=== PATIENT | female | born 1995 | race Two or more races ===

== ENCOUNTER 2017-04-14 21:15 | Inpatient (IN) | payer OTHER, MEDICAID ==
[2017-04-14] MEDS ORDERED: NS 1,000 ML IV ONE (21:20)
[2017-04-14] MEDS ORDERED: fentaNYL 100 MCG/2 ML INJ ONE ×5 (21:22→22:39)
[2017-04-14] MEDS ORDERED: ceFAZolin 2 GM in NS 100 ML IV ONE (21:22)
[2017-04-14] MEDS ORDERED: fentaNYL 100 MCG/2 ML INJ IVP ONE (21:22)
[2017-04-14] MEDS ORDERED: CEFAZOLIN 2 GM/DEXTROSE/100 ML BAG IV ONE (21:23)
[2017-04-14] MEDS ORDERED: IOPAMIDOL (ISOVUE-300) 100 ML BTL ONE (21:27)
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
[2017-04-14] MEDS ORDERED: DIAZEPAM 10 MG/2 ML SYR ONE (22:13)
[2017-04-14 22:37] LABS: ADD DIFF? YES; ADD MORPH? NO; ADD SCAN? NO; ATYPICAL LYMPHOCYTE FLAG 10 (0-99); FRAGMENT RBC FLAG 0 (0-99); HEMATOCRIT 35.1 % (38.0-47.0); HEMOGLOBIN 11.4 g/dL (12.6-16.3); LEFT SHIFT FLG 50 (0-99); LIPEMIA HEMOLYSIS FLAG 80 (0-99); MEAN CELL HEMOGLOBIN 28.7 pg (27.9-34.1); MEAN CELL HEMOGLOBIN CONCENTR. 32.5 g/dL (32.4-36.7); MEAN CELL VOLUME 88.4 fL (81.5-99.8); MEAN PLATELET VOLUME 8.8 fL (8.7-11.7); PLATELET CLUMPS FLAG 0 (0-99); PLATELET COUNT 276 10^3/uL (150-400); RED BLOOD CELL COUNT 3.97 10^6/uL (4.18-5.33); RED CELL DISTRIBUTION WIDTH 12.2 % (11.5-15.2)
[2017-04-14] MEDS ORDERED: PROPOFOL 200 MG/20 ML VIAL ONE ×2 (22:39)
[2017-04-14] MEDS ORDERED: ROCURONIUM 50 MG/5 ML VIAL ONE (22:43)
[2017-04-14] MEDS ORDERED: LIDOCAINE 2% 100 MG/5 ML SYR ONE (22:43)
[2017-04-14 22:46] LABS: INR 1.11 (0.83-1.16); PROTIME(PATIENT) 14.2 SEC (12.0-15.0)
[2017-04-14 22:47] LABS: APTT 26.2 SEC (23.0-38.0)
[2017-04-14 22:49] LABS: ANION GAP 8 mEq/L (8-16); CALCIUM 7.9 mg/dL (8.5-10.4); CARBON DIOXIDE 22 mEq/l (22-31); CHLORIDE 105 mEq/L (97-110); CREATININE 0.8 mg/dL (0.6-1.0); ETHANOL SERUM < 10 mg/dL (0-10); GLOMERULAR FILTRATION RATE > 60; GLUCOSE 134 mg/dL (70-100); POTASSIUM 3.4 mEq/L (3.5-5.2); SODIUM 135 mEq/L (134-144)
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
[2017-04-14 23:05] LABS: PLATELET ESTIMATE ADEQUATE (ADEQ)
[2017-04-14] MEDS ORDERED: MIDAZOLAM 2 MG/2 ML VIAL IVP ONE (23:06)
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
[2017-04-14] MEDS ORDERED: NALOXONE HCL 0.4 MG/ML INJ IVP PRN (23:08)
[2017-04-14] MEDS ORDERED: LORazepam 2 MG/ML INJ IVP PRN (23:08)
[2017-04-14] MEDS ORDERED: ONDANSETRON 4 MG/2 ML VIAL IVP PRN (23:08)
[2017-04-14] MEDS ORDERED: BUPIVACAINE 0.5% 30 ML SDV ONE (23:15)
[2017-04-14] MEDS ORDERED: POLYMYXIN B SULFATE 500,000 UNIT/10 ML SYR IRR ONE (23:15)
[2017-04-14] MEDS ORDERED: BACITRACIN 50,000 UNITS/10 ML SYR IRR ONE (23:15)
[2017-04-14] MEDS ORDERED: LR 1,000 ML IV SCH (23:30)
[2017-04-14] MEDS ORDERED: fentaNYL/NACL 100 ML IV SCH (23:30)
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
[2017-04-15] MEDS ORDERED: ONDANSETRON 4 MG/2 ML VIAL ONE (00:43)
[2017-04-15] MEDS ORDERED: DEXAMETHASONE 4 MG/ML VIAL ONE (00:43)
[2017-04-15] MEDS ORDERED: GENTAMICIN 0.1% 15 GM OINT TP ONE (00:45)
[2017-04-15] MEDS ORDERED: HYDROmorphONE/DILAUDID 2 MG/ML INJ ONE (02:14)
[2017-04-15] MEDS ORDERED: HYDROmorphONE/DILAUDID 1 MG/ML SYR IVP PRN (03:05)
[2017-04-15] MEDS ORDERED: ONDANSETRON 4 MG/2 ML VIAL IVP PRN (03:05)
[2017-04-15] MEDS ORDERED: ACETAMINOPHEN 500 MG TAB PO PRN (03:05)
[2017-04-15] MEDS ORDERED: PROMETHAZINE HCL 25 MG/ML INJ IVP PRN (03:05)
[2017-04-15] MEDS ORDERED: OXYCODONE/APAP 5/325 TAB PO PRN (03:05)
[2017-04-15] MEDS ORDERED: NALOXONE HCL 0.4 MG/ML INJ IVP PRN (03:05)
--- NOTE | 2017-04-15 03:08 | POSTANESTH ---
Post Anesthetic Evaluation Cardiovascular Status: Normal, Stable, Similar to Pre-Op Cond Respiratory Status: Normal, Stable, Similar to Pre-op Cond. Level of Consciousness/Mental Status: Can Participate in Eval, Moderately Sleepy Pain Control: Adequate, Prn Tx Ordered Nausea/Vomiting Control: Adequate, Prn Tx Ordered Complications Possibly Related to Anesthesia: None Noted
[2017-04-15] MEDS ORDERED: DIPHENOXYLATE/ATROPINE LOMOTIL 1 TAB PO PRN (03:11)
[2017-04-15] MEDS ORDERED: LR 1,000 ML IV SCH (03:30)
[2017-04-15] MEDS: fentaNYL 100 MCG/2 ML INJ IVP PRN ×2 (03:54→04:19)
[2017-04-15] MEDS: FAMOTIDINE 20 MG/NACL 50 ML IV SCH ×3 (04:16→19:57)
[2017-04-15 04:52] LABS: % IMMATURE GRANULYOCYTES 0.6 % (0.0-1.1); ADD DIFF? NO; ADD MORPH? NO; ADD SCAN? NO; ATYPICAL LYMPHOCYTE FLAG 20 (0-99); FRAGMENT RBC FLAG 0 (0-99); HEMATOCRIT 26.9 % (38.0-47.0); HEMOGLOBIN 8.8 g/dL (12.6-16.3); LEFT SHIFT FLG 90 (0-99); LIPEMIA HEMOLYSIS FLAG 80 (0-99); MEAN CELL HEMOGLOBIN 28.8 pg (27.9-34.1); MEAN CELL HEMOGLOBIN CONCENTR. 32.7 g/dL (32.4-36.7); MEAN CELL VOLUME 87.9 fL (81.5-99.8); MEAN PLATELET VOLUME 8.7 fL (8.7-11.7); PLATELET CLUMPS FLAG 0 (0-99); PLATELET COUNT 213 10^3/uL (150-400); RED BLOOD CELL COUNT 3.06 10^6/uL (4.18-5.33); RED CELL DISTRIBUTION WIDTH 12.2 % (11.5-15.2)
[2017-04-15 04:56] LABS: COLOR YELLOW; LEUKOCYTE ESTERASE,URINE NEGATIVE (NEGATIVE); NITRITE,URINE NEGATIVE (NEGATIVE)
[2017-04-15 04:58] LABS: MUCUS TRACE /lpf (NONE-1+)
[2017-04-15] MEDS: ceFAZolin 2 GM/DEXTROSE 100 ML IV SCH ×3 (05:43→22:20)
[2017-04-15] MEDS: ACETAMINOPHEN 325 MG TAB PO SCH ×4 (06:25→22:20)
--- NOTE | 2017-04-15 06:31 | GOP ---
[f rep st] OPERATIVE REPORT DATE OF OPERATION: 04/14/2017 SURGEON: Zander Gentile MD SENIOR MECHANICAL DEVELOPMENT ENGINEER: Margaux Damon RN. ANESTHESIA: General. PREOPERATIVE DIAGNOSIS: 1. Left femoral shaft fracture (closed). 2. Left fibular shaft fracture (open). 3. Left medial malleolar ankle fracture (closed and displaced). 4. Left lower leg wound with soft tissue avulsion lateral and posterior compartments. POSTOPERATIVE DIAGNOSIS: 1. Left femoral shaft fracture (closed). 2. Left fibular shaft fracture (open). 3. Left medial malleolar ankle fracture (closed and displaced). 4. Left lower leg wound with soft tissue avulsion lateral and posterior compartments. PROCEDURE PERFORMED: 1. Open reduction, internal fixation with intramedullary louann, left femoral fracture. 2. Open reduction, internal fixation, left medial malleolus ankle fracture. 3. Debridement open fracture, left fibular shaft fracture. 4. Soft tissue debridement, left leg wound. 5. Compartment release, anterior and lateral compartments, left leg. FINDINGS: DESCRIPTION OF PROCEDURE: Patient was taken to the operating room and administered general anesthes ia, placed in the supine position on the fracture table without the fracture apparatus initially set up. We initially addressed the left medial malleolar ankle fracture. An incision was made over th e medial malleolus. This was carried through dermal and subcutaneous tissues. Blunt and sharp diss ection were performed down to the level of the fracture. The periosteum was reflected. The fractur e was reduced and subsequently secured with 2 K-wires. 4.0 cannulated screws measuring 40 mm in replaced by [facility] were used for fixation. Anatomic fixation was obtained. The deltoid ligament was then reapprox imated with 2-0 Vicryl sutures, followed by extensive lavage. The subcutaneous tissues were closed with 2-0 Vicryl suture, followed by closure of the dermis with 3-0 Ethilon. Intraoperative films sh owed excellent alignment. The ankle mortise was still maintained despite the midshaft fibular fract ure. The midshaft fibular fracture was then addressed. We thoroughly lavaged and debrided the frac ture. There were several small bone fragments that had to be removed. The bone ends were curetted and thoroughly lavaged with 9000 cc of saline solution, and the last 3000 cc had polymyxin and bacit racin within it. Soft tissue debridement was then performed on the left leg wound. There was exten sive muscle avulsion and skin avulsion. This had ground in dirt and grass. We took our time pickin g out all the foreign debris. This was thoroughly lavaged with the saline solution. Skin edges wer e trimmed back approximately 0.5 cm. There was no way to get closure, because there was definitely soft tissue loss. We elected to release the fascia in the anterior and lateral compartments. This was performed with a 15 blade and subsequently Metzenbaum scissors. Compartments bulged, but the soft tissue looked vi able; it bled; it contracted. After thorough lavage, debridement and fasciotomies, the muscle layer was covered with gentamicin-impregnated Adaptic gauze. Wet-to-dry dressing was then performed. Th e patient was then placed into a posterior leg splint. We subsequently applied a traction pin throu gh the proximal tibia. This was performed so that we can get distraction on our femoral fracture. Skin had already been prepped in this area. A small puncture wound was made with an 11 blade. A 3/ 16 Steinmann pin was then passed across the proximal tibia. The pin was cut the appropriate length. Our fracture table was then appropriately aligned. The traction bow was fastened to our pins. We subsequently applied distal distraction to the femoral fracture. The leg was then prepped and drap ed proximally to address the femur fracture. An incision was made over the greater trochanter. It was carried through dermal subcutaneous tissue s. The gluteal fascia was incised. The digital palpation of the tip of the greater trochanter was performed. A guidewire was then passed through this tip of the greater trochanter. This was visual ized under fluoroscopic control. We then drilled the proximal cortex with the Synthes starting dril l. The ball-tip guide was bent slightly at its tip. This was then passed down through the proximal fracture segment of the femur under fluoroscopic control. Applying distraction and manipulating th e fracture, we were able to get the ball-tip to pass through the distal fracture segment. Reaming t hen commenced with a size 8.5 reamer and extended up to a size 11.5 reamer initially in 1 mm increme nts. Then, the last 3 regulo in 0.5 mm increments. Excellent chatter was obtained. The guide louann w as then measured. We selected a 10 mm diameter x 380 mm length louann. This was attached to the inser tion apparatus. We subsequently impacted the louann over the guide pin across the fracture. The side arm was placed on the IM nail and tightened with a screwdriver. We positioned this appropriately so that the pin would go up through the femoral neck. The guide apparatus was then attached laterally . The drill sleeves were positioned. We made an incision to allow us to insert the drill sleeves. These were then ratcheted down to the lateral cortex of the femur. A guide pin was then passed up through the lateral cortex of the femur up into the femoral neck. This was then measured. An 80 mm spiral bolt was utilized. This was opened and then passed through the guide apparatus. It was imp acted into position. The visualization of all this took place under fluoroscopy. Thorough lavage w as performed. The guide apparatus was then removed distally. The proximal locking screw was tighte jefferson down. The proximal insertion handle was then removed. Thorough lavage was performed of all inc isions with normal saline. The distal locking screw was then placed using the radiolucent drill. A small incision was made with an 11 blade. The drill was then passed across the distal screw hole i n the nail. The screw was measured and subsequently placed. It measured 54 mm in length. We scann ed the entire fracture, and we found that everything was anatomically reduced. Closure was performe d of the incisions with a 0 Vicryl in the fascia layer, followed by 2-0 Vicryl in the subcutaneous t issues, followed by lorraine in the dermis. A sterile compression dressing applied. The patient paul erated the procedure well and was transferred to the IC unit in stable condition. There were no ope rative complications. COMPLICATIONS: None. /[id number]/MODL
[2017-04-15] MEDS ORDERED: ALBUTEROL 60 PUFFS/8 GM MDI IH PRN (06:51)
[2017-04-15] MEDS ORDERED: ALBUTEROL 200 PUFFS/18 GM MDI IH PRN (07:03)
[2017-04-15] MEDS ORDERED: DEXMEDETOMIDINE HCL 400 MCG in NS 100 ML IV SCH (09:00)
[2017-04-15] MEDS ORDERED: ENOXAPARIN 30 MG/0.3 ML SYR SC SCH (09:00)
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
[2017-04-15] MEDS: LORazepam 2 MG/ML INJ IVP PRN (14:00)
[2017-04-15] MEDS: oxyCODONE IR 5 MG TAB PO PRN ×2 (14:01→18:16)
--- NOTE | 2017-04-15 15:02 | SOAPPROG ---
SOAP Progress Note Assessment/Plan: Assessment/Plan: s/p ORIF with IM louann fixation L femur fracture, ORIF for L medial malleolus fracture, debridement of L open fibula shaft fracture, anterior and lateral compartment releases LLE POD#1 - Continue pain management - NWB LLE - OOB to chair is okay with PT - Consult to wound care for fasciotomy sites - Doppler U/S for LLE pulse 04/15/17 14:58 Subjective: Pt is awake and states she has frequent anxiety attacks. Pt is not able to verbalize her pain. Nurse is at bedside. Pt denies fever, chills, chest pain, abdominal pain, N/V/D, numbness, and tingling. Objective: Vital Signs Temp Pulse Resp BP Pulse Ox 36.9 C 98 10 L 99/52 L 100 04/15/17 11:55 04/15/17 14:00 04/15/17 14:00 04/15/17 14:00 04/15/17 14:00 Laboratory Results 04/15/17 04:40 04/14/17 04/15/17 04/16/17 05:59 05:59 05:59 Intake Total 1865 Output Total 300 Balance 1565 PT 14.2 SEC (12.0-15.0) 04/14/17 22:30 INR 1.11 (0.83-1.16) 04/14/17 22:30 Physical Exam - Physical Exam General Appearance: alert, mild distress Neck: other (collar intact) Skin: other (left foot is cool to touch) Extremities: normal capillary refill, other (post-operative splint and dressings intact, pt able to move her toes well), No pedal edema Neuro/Psych: no motor/sensory deficits, alert, normal mood/affect ICD10 Worksheet Patient Problems: Problems Problem Status Onset Anemia Acute Femur fracture, left Acute Hypokalemia Acute Leukocytosis Acute Lumbar transverse process fracture Acute Sacral fracture Acute Skull fracture Acute Tibia/fibula fracture Acute
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
[2017-04-16] MEDS: ACETAMINOPHEN 325 MG TAB PO SCH ×3 (04:50→17:37)
[2017-04-16] MEDS: ceFAZolin 2 GM/DEXTROSE 100 ML IV SCH ×3 (06:07→23:43)
[2017-04-16] MEDS: FAMOTIDINE 20 MG TAB PO SCH ×2 (08:31→20:15)
[2017-04-16] MEDS: oxyCODONE IR 5 MG TAB PO PRN ×2 (08:31→14:45)
[2017-04-16] MEDS: ENOXAPARIN 40 MG/0.4 ML SYR SC SCH (08:31)
[2017-04-16] MEDS ORDERED: oxyCODONE IR 15 MG TAB PO PRN (09:09)
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
[2017-04-16] MEDS: CYCLOBENZAPRINE 10 MG TAB PO PRN (10:19)
[2017-04-16] MEDS: LORazepam 2 MG/ML INJ IVP PRN (11:03)
[2017-04-16] MEDS: D5W 1/2 NS W/ 20 KCl/L 1,000 ML IV SCH (11:06)
--- NOTE | 2017-04-16 13:02 | SOAPPROG ---
SOAP Progress Note Assessment/Plan: Assessment/Plan: s/p ORIF with IM louann fixation L femur fracture, ORIF for L medial malleolus fracture, debridement of L open fibula shaft fracture, anterior and lateral compartment releases LLE POD#2 - Continue pain management - NWB LLE - OOB to chair is okay with PT - Wound care to address fasciotomy sites today - Monitor swelling and perfusion to the distal LLE 04/15/17 14:58 04/16/17 12:59 Subjective: Pt states her pain is better in the LLE compared to this morning. She has had better circulation in the distal LLE since loosening the post-operative bandages yesterday. Pt was OOB today and able to transfer to the chair. Pt denies fever, chills, chest pain, SOB, numbness and tingling. Objective: Vital Signs Temp Pulse Resp BP Pulse Ox 36.7 C 99 11 L 110/52 L 100 04/16/17 12:00 04/16/17 12:00 04/16/17 12:00 04/16/17 12:00 04/16/17 12:00 Laboratory Results 04/15/17 04:40 04/15/17 04/16/17 04/17/17 05:59 05:59 05:59 Intake Total 1865 3722 Output Total 300 4300 Balance 1565 -578 PT 14.2 SEC (12.0-15.0) 04/14/17 22:30 INR 1.11 (0.83-1.16) 04/14/17 22:30 Physical Exam - Physical Exam General Appearance: alert, mild distress Cardiac/Chest: normal peripheral pulses Skin: normal color, warm/dry, other (Post-operative dressings intact and loosened on the distal LLE. Wound care at bedside.) Extremities: normal capillary refill, swelling, No pedal edema, No calf tenderness, No Dave's sign Neuro/Psych: no motor/sensory deficits, alert, normal mood/affect, oriented x 3 ICD10 Worksheet Patient Problems: Problems Problem Status Onset Anemia Acute Femur fracture, left Acute Hypokalemia Acute Leukocytosis Acute Lumbar transverse process fracture Acute Sacral fracture Acute Skull fracture Acute Tibia/fibula fracture Acute
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
--- NOTE | 2017-04-16 14:00 | WOCRNPDOC ---
WOCRN Advanced Assessment Note - Skin Integrity Problem, Advanced Assess Left lateral lower leg Dressing Type: ABD Pad, Gary Bandage, Adaptic Touch, Other Other Dressing Type: Cast padding Exudate Amount: Minimal Exudate Color: Red Exudate Characteristic(s): Bloody Integumentary Issue Intervention: Dressing Applied (3 pieces of black foam) Emilie Wound Tissue: Swollen Emilie Wound Swelling: Moderate Wound Bed Constitution: Smooth Tissue, Muscle Wound Edges: Not Attached, Irregular Site Odor: None Site Measurement - Head-to-Toe Length X Width X Depth (cm): 11.5cmx9.5cmx1.5cm Skin Integrity Problem Comment: Wound assessed w/ Dr. De La Rosa and Eloisa EDMONDS. Existing GARY wraps cut off, and LLE removed from splint which was placed in OR. Fasciotomy/soft tissue debridement of left lateral leg w/ exposed muscle and smooth tissue, moderate swelling emilie-wound and throughout LLE. Wound bed is beefy and red, comprised of well-vascularized tissue. Emilie-wound skin has a few minor, superficial abrasions, but is otherwise intact. Site flushed w/ NS, emilie-wound prepped and draped, and 3 pieces of black foam placed into wound bed and bridged up to just below L knee. NPWT initiated at 125mmHg, low continuous suction, no leaks. Extremity was the re-wrapped w/ cast padding, placed back into splint, and secured w/ GARY wraps x2 to L knee. In order to prevent pressure /friction injuries from splint, foam dressing was placed over great toe and L heel. Staff RNs Keyanna and Maria C present and assisting. Eloisa EDMONDS will follow up with patient on Thursday 04/19. Left Medial Ankle Surgical Wound/Incision Dressing Type: Adaptic Touch, Other Other Dressing Type: Cast padding Dressing Description: Intact Closure Description: Sutures, Approximated Exudate Amount: Scant Exudate Characteristic(s): Serosanguinous Integumentary Issue Intervention: Dressing Applied Emilie Wound Swelling: Mild Skin Integrity Problem Comment: Intact sutures noted to L medial ankle, well- approximated w/ scant drainage. Mild swelling noted throughout L foot and lower leg, no erythema along incision. Site covered w/ Xeroform gauze and cast padding , followed by splint and GAYR wraps. Wound care will follow up with patient on Thursday 04/19. Left Upper Leg Surgical Wound/Incision Dressing Type: Gauze Dressing Description: Shadowed Closure Description: [place], Approximated Exudate Amount: Scant Exudate Color: Reddish/Yellow Exudate Characteristic(s): Serosanguinous Integumentary Issue Intervention: Dressing Changed Emilie Wound Tissue: Denuded Emilie Wound Swelling: Mild Site Odor: None Skin Integrity Problem Comment: Three, discrete stapled incisions noted on L lateral thigh, well-approximated w/ scant serosanguinous exudate. Very mild swelling along incisions, no erythema. There are scattered abrasions on her lateral thigh, dried, w/ no associated swelling. Covered abrasions in Vaseline gauze, then covered incisions and abrasions w/ ABDs, secured w/ Medipore tape. belt builderCECILIA Briceño present and assisting.
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
[2017-04-17] MEDS: oxyCODONE IR 5 MG TAB PO PRN ×6 (00:23→20:32)
[2017-04-17] MEDS: ACETAMINOPHEN 325 MG TAB PO SCH ×4 (00:24→19:04)
[2017-04-17] MEDS: ceFAZolin 2 GM/DEXTROSE 100 ML IV SCH ×3 (05:16→21:51)
[2017-04-17] MEDS ORDERED: BISACODYL 10 MG SUPP PR PRN (07:28)
[2017-04-17] MEDS ORDERED: LACTULOSE 20 GM/30 ML UDCUP PO PRN (07:28)
[2017-04-17] MEDS ORDERED: POLYETHYLENE GLYCOL 3350 17 GM PKT PO PRN (07:28)
[2017-04-17] MEDS: D5W 1/2 NS W/ 20 KCl/L 1,000 ML IV SCH (07:38)
[2017-04-17] MEDS: ENOXAPARIN 40 MG/0.4 ML SYR SC SCH (09:13)
[2017-04-17] MEDS: FAMOTIDINE 20 MG TAB PO SCH ×2 (09:14→20:31)
[2017-04-17] MEDS: SENNOSIDES/DOCUSATE SODIUM TAB PO SCH ×2 (09:14→20:31)
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
[2017-04-17 12:00] LABS: % IMMATURE GRANULYOCYTES 0.4 % (0.0-1.1); ABSOLUTE IMMATURE GRANULOCYTES 0.04 10^3/uL (0.00-0.10); ADD DIFF? NO; ADD MORPH? YES; ADD SCAN? NO; ATYPICAL LYMPHOCYTE FLAG 20 (0-99); FRAGMENT RBC FLAG 0 (0-99); HEMATOCRIT 17.8 % (38.0-47.0); LEFT SHIFT FLG 10 (0-99); LIPEMIA HEMOLYSIS FLAG 80 (0-99); MEAN CELL HEMOGLOBIN 28.4 pg (27.9-34.1); MEAN CELL VOLUME 88.6 fL (81.5-99.8); MEAN PLATELET VOLUME 9.4 fL (8.7-11.7); PLATELET CLUMPS FLAG 20 (0-99); PLATELET COUNT 146 10^3/uL (150-400); RED BLOOD CELL COUNT 2.01 10^6/uL (4.18-5.33); RED CELL DISTRIBUTION WIDTH 12.2 % (11.5-15.2)
[2017-04-17 12:06] LABS: HEMOGLOBIN 5.7 g/dL (12.6-16.3)
[2017-04-17 12:26] LABS: HYPOCHROMIA 1+
[2017-04-17 12:39] LABS: ANION GAP 8 mEq/L (8-16); CALCIUM 8.3 mg/dL (8.5-10.4); CARBON DIOXIDE 26 mEq/l (22-31); CHLORIDE 102 mEq/L (97-110); CREATININE 0.7 mg/dL (0.6-1.0); GLOMERULAR FILTRATION RATE > 60; GLUCOSE 146 mg/dL (70-100); SODIUM 136 mEq/L (134-144)
[2017-04-17 12:50] LABS: HEMATOCRIT 16.6 % (38.0-47.0); HEMOGLOBIN 5.5 g/dL (12.6-16.3)
[2017-04-17] MEDS ORDERED: FUROSEMIDE 20 MG/2 ML VIAL IVP ONE (13:25)
[2017-04-17] MEDS ORDERED: FUROSEMIDE 20 MG/2 ML VIAL ONE (18:58)
[2017-04-17 22:45] LABS: PLATELET ESTIMATE ADEQUATE (ADEQ)
[2017-04-18] MEDS: oxyCODONE IR 5 MG TAB PO PRN ×6 (00:43→20:49)
[2017-04-18] MEDS: ACETAMINOPHEN 325 MG TAB PO SCH ×5 (00:43→23:00)
[2017-04-18] MEDS: LORazepam 2 MG/ML INJ IVP PRN (04:27)
[2017-04-18 05:17] LABS: ABSOLUTE IMMATURE GRANULOCYTES 0.09 10^3/uL (0.00-0.10); ABSOLUTE NRBC COUNT 0.04 10^3/uL (0-0.01); ADD DIFF? NO; ADD MORPH? NO; ADD SCAN? NO; ATYPICAL LYMPHOCYTE FLAG 0 (0-99); FRAGMENT RBC FLAG 0 (0-99); HEMATOCRIT 25.3 % (38.0-47.0); HEMOGLOBIN 8.7 g/dL (12.6-16.3); LEFT SHIFT FLG 10 (0-99); LIPEMIA HEMOLYSIS FLAG 90 (0-99); MEAN CELL HEMOGLOBIN 29.6 pg (27.9-34.1); MEAN CELL HEMOGLOBIN CONCENTR. 34.4 g/dL (32.4-36.7); MEAN CELL VOLUME 86.1 fL (81.5-99.8); MEAN PLATELET VOLUME 9.5 fL (8.7-11.7); NRBC-AUTO% 0.4 % (0.0-0.2); PLATELET CLUMPS FLAG 0 (0-99); PLATELET COUNT 153 10^3/uL (150-400); RED BLOOD CELL COUNT 2.94 10^6/uL (4.18-5.33); RED CELL DISTRIBUTION WIDTH 12.3 % (11.5-15.2)
[2017-04-18] MEDS: ceFAZolin 2 GM/DEXTROSE 100 ML IV SCH ×3 (05:35→20:50)
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
[2017-04-18] MEDS: MAGNESIUM HYDROXIDE 30 ML UDCUP PO PRN (09:30)
[2017-04-18] MEDS: FAMOTIDINE 20 MG TAB PO SCH ×2 (09:33→20:49)
[2017-04-18] MEDS: ENOXAPARIN 40 MG/0.4 ML SYR SC SCH (09:33)
[2017-04-18] MEDS: SENNOSIDES/DOCUSATE SODIUM TAB PO SCH ×2 (09:33→20:48)
[2017-04-18] MEDS ORDERED: BACITRACIN ZINC 14.2 GM OINTTUBE TP ONE (09:44)
--- NOTE | 2017-04-18 12:41 | SOAPPROG ---
SOAP Progress Note Assessment/Plan: Assessment: POD 4 s/p L fem IMN, ORIF L ankle with open fx khadar/vac/ fasciotomies (ant & lat) by Dr Gentile. LT sens deficit much improved today. Plan: Continue per Dr Gentile's plan, including soft tissue defect/wound care, vac LLE with standard Q48-72H changes by customs opener verifier packer, NWB LLE, ultimate coverage plan pending. Dsgs changed today by me and RN. OK for OOB to chair, cont to adv mobilization with precautions. Primary care by Trauma service ( primary team), including VTE chemo/mech prophylaxis. Please call with any questions. 04/18/17 12:39 Subjective: Tx'd to floor o/n, doing well, stable. No ANURAG. Pain better controlled. Objective: Vital Signs Temp Pulse Resp BP Pulse Ox 36.8 C 96 14 135/83 H 99 04/18/17 11:55 04/18/17 11:55 04/18/17 11:55 04/18/17 11:55 04/18/17 11:55 Laboratory Results 04/18/17 04:35 04/17/17 11:40 04/17/17 04/18/17 04/19/17 05:59 05:59 05:59 Intake Total 1545 2260 200 Output Total 2625 1500 2100 Balance -1080 760 -1900 PT 14.2 SEC (12.0-15.0) 04/14/17 22:30 INR 1.11 (0.83-1.16) 04/14/17 22:30 LLE thigh wounds clean/dry, benign, +edema but thigh soft. Vac in place and functioning. LT sens much improved today x SP/DP/T nerve dist's at L foot, motor continues to be intact (toe wiggle). No sig pain with pass stretch and AROM. WWP w/ brisk CR. ICD10 Worksheet Patient Problems: Problems Problem Status Onset Anemia Acute Femur fracture, left Acute Hypokalemia Acute Leukocytosis Acute Lumbar transverse process fracture Acute Sacral fracture Acute Skull fracture Acute Tibia/fibula fracture Acute
[2017-04-18] MEDS: LORazepam 1 MG TAB PO PRN (23:00)
[2017-04-19] MEDS: oxyCODONE IR 5 MG TAB PO PRN ×5 (03:23→23:02)
[2017-04-19] MEDS: ceFAZolin 2 GM/DEXTROSE 100 ML IV SCH ×2 (04:53→15:25)
[2017-04-19] MEDS: ACETAMINOPHEN 325 MG TAB PO SCH ×3 (04:53→17:57)
[2017-04-19] MEDS: SENNOSIDES/DOCUSATE SODIUM TAB PO SCH ×2 (08:20→21:20)
[2017-04-19] MEDS: FAMOTIDINE 20 MG TAB PO SCH ×2 (08:21→21:20)
--- NOTE | 2017-04-19 08:31 | SOAPPROG ---
SOAP Progress Note Assessment/Plan: Assessment/Plan: s/p ORIF with IM louann fixation L femur fracture, ORIF for L medial malleolus fracture, debridement of L open fibula shaft fracture, anterior and lateral compartment releases LLE POD#2 - Continue pain management, encourage PO meds and weaning off IV as tolerated - NWB LLE, cont to encourage swelling control - OOB to chair is okay with PT, cont to advance mobilization as ordered - Dr. Torres will assist in wound care, consult greatly appreciated - Monitor swelling and perfusion to the distal LLE, sensation improved today - Cont VTE mechanical and chemoprophylaxis -OK to d/c from ortho standpoint pending soft tissue coverage plan per Dr. Torres 04/19/17 08:24 Subjective: Pt seen at bedside. States she is tolerating her diet and medications well. States pain is well controlled on current medication, though confirms that this medication is making her sleep. Objective: Vital Signs Temp Pulse Resp BP Pulse Ox 36.9 C 96 14 123/74 H 95 04/19/17 07:55 04/19/17 07:55 04/19/17 07:55 04/19/17 07:55 04/19/17 07:55 Laboratory Results 04/18/17 04:35 04/17/17 11:40 04/18/17 04/19/17 04/20/17 05:59 05:59 05:59 Intake Total 2260 1650 Output Total 1500 2900 Balance 760 -1250 PT 14.2 SEC (12.0-15.0) 04/14/17 22:30 INR 1.11 (0.83-1.16) 04/14/17 22:30 Pt seen at bedside. Pleasaqnt and cooperative with exam, VSS. Exam of LLE thigh reveals intact dressings, clean/dry. Mild edema noted in the thigh, though compartments appear soft. Vac in place and functioning. Sensation improved today per Dr. Gentile's exam, motor function intact with flex/ext of toes. No significant pain noted with passive stretch and no increase w/ AROM. Brisk cap refill noted. ICD10 Worksheet Patient Problems: Problems Problem Status Onset Anemia Acute Femur fracture, left Acute Hypokalemia Acute Leukocytosis Acute Lumbar transverse process fracture Acute Sacral fracture Acute Skull fracture Acute Tibia/fibula fracture Acute
[2017-04-19 08:41] LABS: HEMATOCRIT 25.7 % (38.0-47.0); HEMOGLOBIN 8.8 g/dL (12.6-16.3); MEAN CELL HEMOGLOBIN 29.7 pg (27.9-34.1); MEAN CELL HEMOGLOBIN CONCENTR. 34.2 g/dL (32.4-36.7); MEAN CELL VOLUME 86.8 fL (81.5-99.8); RED BLOOD CELL COUNT 2.96 10^6/uL (4.18-5.33); RED CELL DISTRIBUTION WIDTH 12.9 % (11.5-15.2)
[2017-04-19] MEDS: ENOXAPARIN 40 MG/0.4 ML SYR SC SCH (09:29)
[2017-04-19] MEDS: LORazepam 1 MG TAB PO PRN (09:29)
[2017-04-19] MEDS: CYCLOBENZAPRINE 10 MG TAB PO PRN (10:26)
--- NOTE | 2017-04-19 16:02 | WOCRNPDOC ---
WOCRN Advanced Assessment Note - Skin Integrity Problem, Advanced Assess Left Medial Ankle Surgical Wound/Incision Dressing Type: Xeroform Dressing Description: Intact, Shadowed Closure Description: Sutures, Approximated Exudate Amount: Scant Exudate Characteristic(s): Serosanguinous Integumentary Issue Intervention: Dressing Changed Emilie Wound Swelling: Moderate Site Odor: None Skin Integrity Problem Comment: No sign of infection. Left Upper Lateral Distal Leg Abrasion Dressing Type: ABD Pad, Xeroform Exudate Amount: Minimal Integumentary Issue Intervention: Dressing Changed, Dressing Initialed & Dated Emilie Wound Swelling: Moderate Wound Bed Color: [place], Yellow Wound Bed Constitution: Granulation Tissue (80%), Smooth Tissue (20%) Wound Edges: Epithelizing Site Measurement - Head-to-Toe Length X Width X Depth (cm): 4x6x0.2 Skin Integrity Problem Comment: Small area of full thickness injury (1x1) with surrounding partial thickness. Healing well. Cleaned with ns and gauze. Wound gel to wound bed. Covered with Allevyn life dressing. Left Upper Leg Surgical Wound/Incision Dressing Type: ABD Pad, Xeroform Closure Description: [place] (x7 in proximal incision site. ), Approximated Exudate Amount: None Integumentary Issue Intervention: Dressing Changed, Dressing Initialed & Dated Emilie Wound Swelling: Severe Site Measurement - Head-to-Toe Length X Width X Depth (cm): 5.7x5.2x0.2 ( measurement of the abrasion that is lateral to the incision site). Incision is approx 3 cm long. Extremity Temperature: Warm Skin Integrity Problem Comment: Two incision sites are present. One distal and more anterior on thigh the other on proximal and lateral. The proximal incision also has a partial thickness abrasion adjacent to it. All were cleaned area with ns and gauze. Silvia on incisions were covered with dry mepilex border ag+ 's. For the proximal wound with the adjacent abration, one border was cut off and placed over silvia. Then wound gel was applied to the partial thickness abrasion that is lateral to the incision line.This was covered with Allevyn life dressing. No sign of infection nor dehiscence in any wounds. drill foremanDIANNE Begum and patient's mother were in room for care. Patient's grandmother also came and went during the entire proceedure. Left lateral lower leg Dressing Type: Black Vac Foam (x3), Wound Vac Dressing Description: Clean/Dry, Intact Exudate Amount: Scant Exudate Characteristic(s): Serosanguinous Integumentary Issue Intervention: Dressing Changed Emilie Wound Swelling: Severe (especially distal to wound.) Wound Bed Constitution: Granulation Tissue (30%), Smooth Tissue (75%), Tendon ( 10%), Muscle Wound Edges: Attached Site Measurement - Head-to-Toe Length X Width X Depth (cm): 9.6x8.5x2 Skin Integrity Problem Comment: Dr. De La Rosa visualized wound. Area was cleaned with ns and gauze. Skin prep and drape applied emilie wound. Wound bed from 9 to 3 oclock covered with mepitel contact layer. Then a medium black simplace was used to apply to wound bed (x3 pieces). This was bridged to anterior proximal lower leg. Vac restarted at - 125 mm Hg continous suction with no leaks. Ankle, lower leg and thigh were all stablized during vac change. Lateral, medial foot and heel were protected with non border Mepilex. All of foot (except toes) and lower leg was re-wrapped in cast padding x2. Splint was reapplied. ABD's x2 were applied to anterior of lower leg and then it was wrapped from toes to 1 inch below knee with Gary for stabilization and protection. Vac tubing was padded from skin with extra cast padding. Left Lateral Distal Foot Pressure Injury Dressing Type: Gary Bandage Other Dressing Type: Cast padding Integumentary Issue Intervention: Dressing Applied Site Measurement - Head-to-Toe Length X Width X Depth (cm): 1.7x1.1x0 Pressure Injury Stage: Stage 1 Pressure Injury Present on Admit: No Skin Integrity Problem Comment: Area was not loaded in splint, however there is a small area of non blanching 0.5x0.5x0 in the middle of a larger area of blanching erythema. (measurements noted above). Unclear etiology. May have been from GARY wrap or side of the bed. Asked CECILIA Dow to place offloading boots on heels at all times and to alert ELEMENTARY ESL TEACHER.
[2017-04-19] MEDS: MAGNESIUM HYDROXIDE 30 ML UDCUP PO PRN (16:26)
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
[2017-04-20] MEDS: ACETAMINOPHEN 325 MG TAB PO SCH ×4 (00:39→18:26)
--- NOTE | 2017-04-20 08:11 | SOAPPROG ---
SOAP Progress Note Assessment/Plan: Assessment/Plan: s/p ORIF with IM louann fixation L femur fracture, ORIF for L medial malleolus fracture, debridement of L open fibula shaft fracture, anterior and lateral compartment releases LLE POD#5 - Continue pain management, encourage PO meds and weaning off IV as tolerated - Encourage adequate hydration and nutrition strategies to promote healing - Cont NWB LLE, cont to encourage swelling control - OOB to chair is okay with PT, cont to advance mobilization as ordered - Trauma will assist in wound care, consult greatly appreciated, anticipating possible grafting procedure in next few days per report - Monitor swelling and perfusion to the distal LLE, sensation remains improved - Cont VTE mechanical and chemoprophylaxis - Pt remains stable and OK to d/c from ortho standpoint pending soft tissue coverage plan per trauma service 04/20/17 08:11 Subjective: Pt seen at bedside today. Slow to answer questions, but alert. She notes no significant pain at this time, and states she is tolerating her diet and medications well, though does note a desire to no longer take "stronger" pain medications. We have discussed the need for adequate pain control for work with PT, and also that we do not want to over medicate her. We have discussed the signs of compartment syndrome. Pt denies any pain out of proportion, new onset n/t, temperature change or feelings of increased swelling today. She reports she has spoken with Dr. Roca about a potential plan for wound care, and possible future surgical interventions including a skin graft. She has no additional concerns or complaints at this time. Objective: Vital Signs Temp Pulse Resp BP Pulse Ox 36.8 C 87 16 106/62 99 04/20/17 07:43 04/20/17 07:43 04/20/17 07:43 04/20/17 07:43 04/20/17 07:43 Laboratory Results 04/19/17 08:24 04/17/17 11:40 04/19/17 04/20/17 04/21/17 05:59 05:59 05:59 Intake Total 1650 900 Output Total 2900 700 Balance -1250 200 PT 14.2 SEC (12.0-15.0) 04/14/17 22:30 INR 1.11 (0.83-1.16) 04/14/17 22:30 Pt seen at bedside, awoken for exam. Pleasant and cooperative with exam, VSS. Exam of LLE thigh reveals intact lateral distal dressings, clean/dry, with no significant surrounding erythema, calor, discharge or induration. Mild ecchymosis noted in the distal thigh and popliteal area, thigh compartments appear soft. Lower extremity splint in place, dressings changed yesterday by trauma service. Sensation remains improved distally, motor function intact with flex/ext of toes. No significant pain noted with passive stretch and no increase w/ AROM. Brisk cap refill noted. ICD10 Worksheet Patient Problems: Problems Problem Status Onset Anemia Acute Femur fracture, left Acute Hypokalemia Acute Leukocytosis Acute Lumbar transverse process fracture Acute Sacral fracture Acute Skull fracture Acute Tibia/fibula fracture Acute
[2017-04-20] MEDS: oxyCODONE IR 5 MG TAB PO PRN ×4 (08:35→20:21)
[2017-04-20] MEDS: SENNOSIDES/DOCUSATE SODIUM TAB PO SCH ×2 (08:36→20:22)
[2017-04-20] MEDS: ENOXAPARIN 40 MG/0.4 ML SYR SC SCH (08:36)
[2017-04-20] MEDS: FAMOTIDINE 20 MG TAB PO SCH ×2 (08:36→20:22)
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
[2017-04-20] MEDS: CYCLOBENZAPRINE 10 MG TAB PO PRN (11:08)
[2017-04-20] MEDS: LORazepam 1 MG TAB PO PRN (21:04)
[2017-04-21] MEDS: ACETAMINOPHEN 325 MG TAB PO SCH ×5 (00:03→23:51)
[2017-04-21] MEDS: oxyCODONE IR 5 MG TAB PO PRN ×4 (00:03→23:52)
[2017-04-21] MEDS: D5W 1/2 NS W/ 20 KCl/L 1,000 ML IV SCH (00:08)
[2017-04-21] MEDS: FAMOTIDINE 20 MG TAB PO SCH ×2 (07:08→20:55)
[2017-04-21] MEDS: SENNOSIDES/DOCUSATE SODIUM TAB PO SCH ×2 (07:08→20:54)
--- NOTE | 2017-04-21 08:19 | SOAPPROG ---
SOAP Progress Note Assessment/Plan: Assessment: Plan: 04/21/17 08:15 S?P Fasciotomies, debridement of open fx fibula, orif femur, orif madial malleolus, non op rx sacral ala and inferior pevic rami fx. Plan for STSG to leg wound today. Will continue to follow, encourage mobility with walker Possible rehab stay vs homecare/PT Subjective: Moderate leg pain, headache Objective: Vital Signs Temp Pulse Resp BP Pulse Ox 36.7 C 104 H 15 105/57 L 96 04/21/17 07:59 04/21/17 07:59 04/21/17 07:59 04/21/17 07:59 04/21/17 07:59 Laboratory Results 04/19/17 08:24 04/17/17 11:40 04/20/17 04/21/17 04/22/17 05:59 05:59 05:59 Intake Total 900 600 Output Total 700 200 Balance 200 400 PT 14.2 SEC (12.0-15.0) 04/14/17 22:30 INR 1.11 (0.83-1.16) 04/14/17 22:30 CSMT: leg dressings ok Thigh swelling improving Difficult sensory exam but as far as I can tell she still has mild hypesthesia in toes both dorsally and plantarly. she does have intact ROM ICD10 Worksheet Patient Problems: Problems Problem Status Onset Anemia Acute Femur fracture, left Acute Hypokalemia Acute Leukocytosis Acute Lumbar transverse process fracture Acute Sacral fracture Acute Skull fracture Acute Tibia/fibula fracture Acute
[2017-04-21] MEDS ORDERED: ceFAZolin 2 GM/DEXTROSE 100 ML IV ONE (09:00)
[2017-04-21] MEDS ORDERED: THROMBIN (BOVINE) 20,000 UNIT SPRAY TP ONE (09:27)
[2017-04-21] MEDS ORDERED: BUPIVACAINE 0.5% 30 ML SDV ONE (09:27)
[2017-04-21] MEDS ORDERED: MINERAL OIL 10 ML VIAL ONE (09:28)
[2017-04-21] MEDS ORDERED: fentaNYL 100 MCG/2 ML INJ ONE ×3 (09:33→11:52)
[2017-04-21] MEDS ORDERED: PROPOFOL 200 MG/20 ML VIAL ONE ×3 (09:33→10:52)
[2017-04-21] MEDS ORDERED: LR 1,000 ML IV ONE (09:51)
[2017-04-21] MEDS ORDERED: MIDAZOLAM 2 MG/2 ML VIAL IVP ONE (09:54)
[2017-04-21] MEDS ORDERED: MIDAZOLAM 2 MG/2 ML VIAL ONE (09:55)
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
[2017-04-21] MEDS ORDERED: HYDROmorphONE/DILAUDID 2 MG/ML INJ ONE (10:32)
[2017-04-21] MEDS ORDERED: OXYCODONE/APAP 5/325 TAB PO PRN (11:37)
[2017-04-21] MEDS ORDERED: LR 500 ML IV PRN (11:37)
[2017-04-21] MEDS ORDERED: ALBUTEROL 3 ML DEYVIAL IH PRN (11:37)
[2017-04-21] MEDS ORDERED: ONDANSETRON 4 MG/2 ML VIAL IVP PRN (11:37)
[2017-04-21] MEDS ORDERED: NALOXONE HCL 0.4 MG/ML INJ IVP PRN (11:37)
[2017-04-21] MEDS ORDERED: ACETAMINOPHEN 500 MG TAB PO PRN (11:37)
--- NOTE | 2017-04-21 11:37 | POSTANESTH ---
Post Anesthetic Evaluation Cardiovascular Status: Normal, Stable Respiratory Status: Normal, Stable Level of Consciousness/Mental Status: Can Participate in Eval Pain Control: Adequate, Prn Tx Ordered Nausea/Vomiting Control: Adequate, Prn Tx Ordered Complications Possibly Related to Anesthesia: None Noted
[2017-04-21] MEDS: fentaNYL 100 MCG/2 ML INJ IVP PRN ×2 (11:53→12:04)
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
[2017-04-21] MEDS ORDERED: HYDROmorphONE/DILAUDID 1 MG/ML SYR ONE (12:11)
[2017-04-21] MEDS: HYDROmorphONE/DILAUDID 1 MG/ML SYR IVP PRN ×2 (12:14→12:24)
[2017-04-21] MEDS: LORazepam 1 MG TAB PO PRN (13:01)
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
[2017-04-21] MEDS: CYCLOBENZAPRINE 10 MG TAB PO PRN (20:55)
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
[2017-04-22 05:00] VITALS: RESP 16
[2017-04-22] MEDS: ACETAMINOPHEN 325 MG TAB PO SCH ×4 (05:25→22:37)
[2017-04-22] MEDS: oxyCODONE IR 5 MG TAB PO PRN ×5 (05:26→21:22)
--- NOTE | 2017-04-22 07:14 | SOAPPROG ---
SOAP Progress Note Assessment/Plan: Assessment/Plan: s/p ORIF with IM louann fixation L femur fracture, ORIF for L medial malleolus fracture, debridement of L open fibula shaft fracture, anterior and lateral compartment releases LLE POD#7 - Continue pain management, encourage PO meds and weaning off IV as tolerated - Cont NWB LLE, cont to encourage swelling control, sensation remains improved - Cont to advance mobilization as ordered - Cont to have trauma will assist in wound care, consult greatly appreciated, taken to OR last 02/19 - Cont to monitor swelling and perfusion to the distal LLE, sensation remains improved - Cont VTE mechanical and chemoprophylaxis - Pt remains stable and OK to d/c from ortho standpoint pending soft tissue coverage plan per trauma service 04/22/17 07:14 04/22/17 10:23 Subjective: Pt seen at bedside, awoken for exam. No complaints of significant pain. Pt states she is tolerating her diet and medications well. She reports the numbness in her buttock is improving. She has no additional concerns or complaints at this time. Objective: Vital Signs Temp Pulse Resp BP Pulse Ox 36.8 C 92 16 94/54 L 96 04/22/17 04:00 04/22/17 04:00 04/22/17 04:00 04/22/17 04:00 04/22/17 04:00 Laboratory Results 04/19/17 08:24 04/17/17 11:40 04/21/17 04/22/17 04/23/17 05:59 05:59 05:59 Intake Total 600 1060 Output Total 200 650 Balance 400 410 PT 14.2 SEC (12.0-15.0) 04/14/17 22:30 INR 1.11 (0.83-1.16) 04/14/17 22:30 Pt seen at bedside, awoken for exam. A&O, VSS. Exam of LLE reveals intact dressings on lateral thigh w/no surrounding significant erythema, calor, discharge or induration. Exam of lower extremity reveals wound vac in place. Pt is intact to light touch sensation on the dorsal and plantar surfaces of her toes, good ROM, brisk cap refill. DNVI BLE. ICD10 Worksheet Patient Problems: Problems Problem Status Onset Anemia Acute Femur fracture, left Acute Hypokalemia Acute Leukocytosis Acute Lumbar transverse process fracture Acute Sacral fracture Acute Skull fracture Acute Tibia/fibula fracture Acute
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
[2017-04-22] MEDS: CYCLOBENZAPRINE 10 MG TAB PO PRN ×2 (08:32→16:30)
[2017-04-22] MEDS: SENNOSIDES/DOCUSATE SODIUM TAB PO SCH ×2 (08:32→21:23)
[2017-04-22] MEDS: FAMOTIDINE 20 MG TAB PO SCH ×2 (08:33→21:23)
[2017-04-22] MEDS: LORazepam 1 MG TAB PO PRN (21:23)
[2017-04-23] MEDS: oxyCODONE IR 5 MG TAB PO PRN ×5 (01:35→15:21)
[2017-04-23] MEDS: CYCLOBENZAPRINE 10 MG TAB PO PRN (01:36)
[2017-04-23] MEDS: ACETAMINOPHEN 325 MG TAB PO SCH ×2 (05:33→11:18)
[2017-04-23 07:49] VITALS: BP 107/58; PULSE 70; TEMP 97.6; O2SAT 97
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
--- NOTE | 2017-04-23 09:30 | SOAPPROG ---
SOAP Progress Note Assessment/Plan: Assessment/Plan: s/p ORIF with IM louann fixation L femur fracture, ORIF for L medial malleolus fracture, debridement of L open fibula shaft fracture, anterior and lateral compartment releases LLE POD#8 - Continue pain management, encourage PO meds - NWB LLE - Appreciate wound care in management of fasciotomy sites - Monitor swelling and perfusion to the distal LLE, remains improved - Keep feet elevated while in bed to improve edema, ice for comfort - Pt remains stable and okay for discharge from an orthopedic standpoint pending appropriate follow-up with wound care 04/15/17 14:58 04/16/17 12:59 04/23/17 09:26 Subjective: Pt states her left foot seems more swollen. Slight, intermittent tingling in the buttock, but seems improved. Pt denies fever, chills, chest pain, SOB, abdominal pain, N/V/D, and calf pain. Objective: Vital Signs Temp Pulse Resp BP Pulse Ox 36.4 C 70 16 107/58 L 97 04/23/17 07:48 04/23/17 07:48 04/23/17 07:48 04/23/17 07:48 04/23/17 07:48 Laboratory Results 04/19/17 08:24 04/17/17 11:40 04/22/17 04/23/17 04/24/17 05:59 05:59 05:59 Intake Total 1060 500 Output Total 650 400 Balance 410 100 PT 14.2 SEC (12.0-15.0) 04/14/17 22:30 INR 1.11 (0.83-1.16) 04/14/17 22:30 Physical Exam - Physical Exam General Appearance: alert, no apparent distress Cardiac/Chest: normal peripheral pulses Skin: normal color, warm/dry, other (wound vac in place LLE) Extremities: normal inspection, normal capillary refill, pedal edema, No calf tenderness, No swelling, No Dave's sign Neuro/Psych: no motor/sensory deficits, alert, normal mood/affect, oriented x 3 ICD10 Worksheet Patient Problems: Problems Problem Status Onset Anemia Acute Femur fracture, left Acute Hypokalemia Acute Leukocytosis Acute Lumbar transverse process fracture Acute Sacral fracture Acute Skull fracture Acute Tibia/fibula fracture Acute
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
[2017-04-23] MEDS: SENNOSIDES/DOCUSATE SODIUM TAB PO SCH (11:13)
[2017-04-23] MEDS: FAMOTIDINE 20 MG TAB PO SCH (11:14)
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
== END 2017-04-23 16:15 | DRG 956 ==
LOC: EDUNIT# → F2N 04-15 02:48 → F3N 04-17 11:57
PROVIDERS: ADMIT Surgery; ATTEND Surgery
PROC: 2W3PX1Z Immobilization of Left Upper Leg using Splint (ICD-10-PCS; 2017-04-14)
PROC: 0KNT0ZZ Release Left Lower Leg Muscle, Open Approach (ICD-10-PCS; principal; 2017-04-14 22:45)
PROC: 0QS906Z Reposition Left Femoral Shaft with Intramedullary Internal Fixation Device, Open Approach (ICD-10-PCS; principal; 2017-04-14 22:45)
PROC: 0QSK04Z Reposition Left Fibula with Internal Fixation Device, Open Approach (ICD-10-PCS; principal; 2017-04-14 22:45)
PROC: 0Q9 Lower Bones, Drainage (ICD-10-PCS; principal; 2017-04-14 22:45)
PROC: 0QSH04Z Reposition Left Tibia with Internal Fixation Device, Open Approach (ICD-10-PCS; principal; 2017-04-14 22:45)
PROC: 30233N1 Transfusion of Nonautologous Red Blood Cells into Peripheral Vein, Percutaneous Approach (ICD-10-PCS; 2017-04-17)
PROC: 0HRLXK4 Replacement of Left Lower Leg Skin with Nonautologous Tissue Substitute, Partial Thickness, External Approach (ICD-10-PCS; 2017-04-21)
PROC: 2W1RX6Z Compression of Left Lower Leg using Pressure Dressing (ICD-10-PCS; 2017-04-21)
PROC: 0KBT0ZZ Excision of Left Lower Leg Muscle, Open Approach (ICD-10-PCS; 2017-04-21)
DX: S02.113A Unspecified occipital condyle fracture, initial encounter for closed fracture (principal); S72.322A Displaced transverse fracture of shaft of left femur, initial encounter for closed fracture; S32.059A Unspecified fracture of fifth lumbar vertebra, initial encounter for closed fracture; S32.19XA Other fracture of sacrum, initial encounter for closed fracture; S32.502A Unspecified fracture of left pubis, initial encounter for closed fracture; S82.402B Unspecified fracture of shaft of left fibula, initial encounter for open fracture type I or II; S82.55XA Nondisplaced fracture of medial malleolus of left tibia, initial encounter for closed fracture; T79.A22A Traumatic compartment syndrome of left lower extremity, initial encounter; D62 Acute posthemorrhagic anemia; F14.90 Cocaine use, unspecified, uncomplicated; F10.10 Alcohol abuse, uncomplicated; V03.10XA Pedestrian on foot injured in collision with car, pick-up truck or van in traffic accident, initial encounter; Y92.410 Unspecified street and highway as the place of occurrence of the external cause
CPT/HCPCS: 80305; 92507-GN; 92523-GN; 96374; 97116-GP; 97162-GP; 97166-GO; 97530-GO; 97530-GP; 97532-GN; 97535-GO; C1713; C1769; G0480; J0171; J0690; J1100; J1170; J1200; J1650; J1940; J2001; J2060; J2250; J2405; J2704; J3010; P9016; P9040; Q9967

== ENCOUNTER 2017-04-23 12:26 | Inpatient (IN) | payer OTHER, MEDICAID ==
[2017-04-23] MEDS ORDERED: ONDANSETRON 4 MG/2 ML VIAL IVP PRN (17:46)
[2017-04-23] MEDS ORDERED: NALOXONE HCL 0.4 MG/ML INJ IVP PRN (17:46)
[2017-04-23] MEDS ORDERED: ALBUTEROL 60 PUFFS/8 GM MDI IH PRN (17:46)
[2017-04-23] MEDS ORDERED: oxyCODONE IR 15 MG TAB PO PRN (17:46)
[2017-04-23] MEDS ORDERED: DIPHENOXYLATE/ATROPINE LOMOTIL 1 TAB PO PRN (17:46)
[2017-04-23] MEDS ORDERED: BISACODYL 10 MG SUPP PR PRN (18:35)
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
[2017-04-23] MEDS: FAMOTIDINE 20 MG TAB PO SCH (20:53)
[2017-04-23] MEDS: oxyCODONE CR 15 MG TAB PO SCH (20:53)
[2017-04-23] MEDS: SENNOSIDES/DOCUSATE SODIUM TAB PO SCH (20:53)
[2017-04-24] MEDS: oxyCODONE IR 5 MG TAB PO PRN ×6 (00:04→18:36)
[2017-04-24] MEDS ORDERED: ONDANSETRON DISINTEGRATING 4 MG TAB PO PRN (01:00)
[2017-04-24] MEDS: CYCLOBENZAPRINE 10 MG TAB PO PRN (02:30)
[2017-04-24] MEDS: LORazepam 1 MG TAB PO PRN ×2 (05:51→22:25)
[2017-04-24 07:59] LABS: % IMMATURE GRANULYOCYTES 0.9 % (0.0-1.1); ABSOLUTE IMMATURE GRANULOCYTES 0.08 10^3/uL (0.00-0.10); ADD DIFF? NO; ADD MORPH? NO; ADD SCAN? NO; ATYPICAL LYMPHOCYTE FLAG 20 (0-99); FRAGMENT RBC FLAG 0 (0-99); HEMATOCRIT 27.2 % (38.0-47.0); HEMOGLOBIN 8.9 g/dL (12.6-16.3); LEFT SHIFT FLG 0 (0-99); LIPEMIA HEMOLYSIS FLAG 80 (0-99); MEAN CELL HEMOGLOBIN 29.5 pg (27.9-34.1); MEAN CELL HEMOGLOBIN CONCENTR. 32.7 g/dL (32.4-36.7); MEAN CELL VOLUME 90.1 fL (81.5-99.8); MEAN PLATELET VOLUME 8.9 fL (8.7-11.7); PLATELET CLUMPS FLAG 0 (0-99); PLATELET COUNT 441 10^3/uL (150-400); RED BLOOD CELL COUNT 3.02 10^6/uL (4.18-5.33); RED CELL DISTRIBUTION WIDTH 14.4 % (11.5-15.2)
[2017-04-24] MEDS: SENNOSIDES/DOCUSATE SODIUM TAB PO SCH ×2 (09:17→21:03)
[2017-04-24] MEDS: ENOXAPARIN 40 MG/0.4 ML SYR SC SCH (09:18)
[2017-04-24] MEDS: FAMOTIDINE 20 MG TAB PO SCH ×2 (09:18→21:03)
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
[2017-04-24] MEDS: oxyCODONE CR 15 MG TAB PO SCH (21:03)
[2017-04-25] MEDS: oxyCODONE IR 5 MG TAB PO PRN ×6 (00:27→23:21)
[2017-04-25] MEDS: ENOXAPARIN 40 MG/0.4 ML SYR SC SCH (09:26)
[2017-04-25] MEDS: CYCLOBENZAPRINE 10 MG TAB PO PRN ×2 (09:26→21:13)
[2017-04-25] MEDS: SENNOSIDES/DOCUSATE SODIUM TAB PO SCH ×2 (09:26→21:13)
[2017-04-25] MEDS: FAMOTIDINE 20 MG TAB PO SCH ×2 (09:26→21:13)
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
[2017-04-25] MEDS: oxyCODONE CR 15 MG TAB PO SCH (21:13)
[2017-04-26] MEDS: oxyCODONE IR 5 MG TAB PO PRN ×7 (02:37→19:21)
[2017-04-26] MEDS: FAMOTIDINE 20 MG TAB PO SCH ×2 (08:15→20:50)
[2017-04-26] MEDS: LORazepam 1 MG TAB PO PRN (08:27)
[2017-04-26] MEDS: ENOXAPARIN 40 MG/0.4 ML SYR SC SCH (09:41)
[2017-04-26] MEDS: SENNOSIDES/DOCUSATE SODIUM TAB PO SCH ×2 (09:41→20:50)
[2017-04-26] MEDS: POLYETHYLENE GLYCOL 3350 17 GM PKT PO PRN (09:41)
--- NOTE | 2017-04-26 09:42 | PDOREHIP ---
Admission [facility] - Admission - 3 Day Assessment Period Admission Date/Day 1: 04/23/17 Day 2: 04/24/17 Day 3: 04/25/17 - Active Diagnoses Comorbidities and Co-existing Conditions at Admission: 99104. None of the Above - Skin Conditions Unhealed Pressure Ulcer (1 or more/Stage 1 or >)-Admission: 0. No
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
[2017-04-26] MEDS ORDERED: IOPAMIDOL (ISOVUE-300) 100 ML BTL ONE (12:15)
[2017-04-26] MEDS ORDERED: IOPAMIDOL (ISOVUE 370) 100 ML BTL IV ONE (12:31)
[2017-04-26] MEDS: CYCLOBENZAPRINE 10 MG TAB PO PRN (18:40)
[2017-04-26] MEDS: oxyCODONE CR 15 MG TAB PO SCH (20:50)
[2017-04-26] MEDS: GABAPENTIN 300 MG CAP PO SCH (20:50)
[2017-04-27] MEDS: oxyCODONE IR 5 MG TAB PO PRN ×6 (02:41→19:37)
[2017-04-27] MEDS: CYCLOBENZAPRINE 10 MG TAB PO PRN (04:01)
[2017-04-27] MEDS: LORazepam 1 MG TAB PO PRN (04:03)
[2017-04-27] MEDS: FAMOTIDINE 20 MG TAB PO SCH ×2 (09:30→19:38)
[2017-04-27] MEDS: ENOXAPARIN 40 MG/0.4 ML SYR SC SCH (09:30)
[2017-04-27] MEDS: SENNOSIDES/DOCUSATE SODIUM TAB PO SCH ×2 (09:30→19:38)
[2017-04-27] MEDS: POLYETHYLENE GLYCOL 3350 17 GM PKT PO PRN (09:31)
[2017-04-27] MEDS ORDERED: MAGNESIUM HYDROXIDE 30 ML UDCUP PO PRN (11:55)
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
[2017-04-27] MEDS ORDERED: LORazepam 1 MG TAB PO PRN (12:25)
[2017-04-27] MEDS: GABAPENTIN 300 MG CAP PO SCH (19:38)
[2017-04-27] MEDS: oxyCODONE CR 15 MG TAB PO SCH (21:00)
[2017-04-28] MEDS: oxyCODONE IR 5 MG TAB PO PRN ×7 (01:43→23:36)
[2017-04-28] MEDS: CYCLOBENZAPRINE 10 MG TAB PO PRN ×2 (06:24→23:36)
[2017-04-28] MEDS: SENNOSIDES/DOCUSATE SODIUM TAB PO SCH ×2 (09:03→21:29)
[2017-04-28] MEDS: FAMOTIDINE 20 MG TAB PO SCH ×2 (09:03→21:28)
[2017-04-28] MEDS: ENOXAPARIN 40 MG/0.4 ML SYR SC SCH (09:04)
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
[2017-04-28] MEDS: WARFARIN SODIUM 5 MG TAB PO SCH (16:19)
--- NOTE | 2017-04-28 17:02 | SOAPPROG ---
SOAP Progress Note Assessment/Plan: Assessment: 1 week s/p debridement skin soft tissue and muscle with application of primatrix and wound vac 1) D/C wound vac 2) Clean around wound with care-klenz or equivalent Q 3 days and prn 3) Apply adaptic directly on wound or non stick equivalent to wound on left posterior calf 4) Apply hydrogel on top of adaptic 5) ABD 6) Wrap with Kerlix 7) Stretch net Change Q 3 days and prn saturation F/U with Dr. Torres in 1 week S: Ambulating O: Primatrix Well adhered and muscle completely covered. Granulation buds at superior aspect Plan: 04/28/17 17:00 Objective: Vital Signs Temp Pulse Resp BP Pulse Ox 37.1 C 118 H 15 102/62 93 04/28/17 07:39 04/28/17 07:39 04/28/17 07:39 04/28/17 07:39 04/28/17 07:39 Laboratory Results 04/24/17 06:30 04/27/17 04/28/17 04/29/17 05:59 05:59 05:59 Intake Total 1410 1590 150 Balance 1410 1590 150 ICD10 Worksheet Patient Problems: Problems Problem Status Onset Anemia Acute Femur fracture, left Acute Hypokalemia Acute Leukocytosis Acute Lumbar transverse process fracture Acute Sacral fracture Acute Skull fracture Acute Tibia/fibula fracture Acute
[2017-04-28] MEDS: GABAPENTIN 300 MG CAP PO SCH (21:28)
[2017-04-28] MEDS: oxyCODONE CR 15 MG TAB PO SCH (21:28)
[2017-04-29] MEDS: oxyCODONE IR 5 MG TAB PO PRN ×4 (06:13→22:28)
[2017-04-29 07:33] LABS: % IMMATURE GRANULYOCYTES 0.3 % (0.0-1.1); ABSOLUTE IMMATURE GRANULOCYTES 0.02 10^3/uL (0.00-0.10); ADD DIFF? NO; ADD MORPH? NO; ADD SCAN? NO; ATYPICAL LYMPHOCYTE FLAG 20 (0-99); FRAGMENT RBC FLAG 0 (0-99); HEMATOCRIT 30.7 % (38.0-47.0); HEMOGLOBIN 9.6 g/dL (12.6-16.3); LEFT SHIFT FLG 0 (0-99); LIPEMIA HEMOLYSIS FLAG 80 (0-99); MEAN CELL HEMOGLOBIN 28.9 pg (27.9-34.1); MEAN CELL HEMOGLOBIN CONCENTR. 31.3 g/dL (32.4-36.7); MEAN CELL VOLUME 92.5 fL (81.5-99.8); MEAN PLATELET VOLUME 8.5 fL (8.7-11.7); PLATELET CLUMPS FLAG 0 (0-99); PLATELET COUNT 708 10^3/uL (150-400); RED BLOOD CELL COUNT 3.32 10^6/uL (4.18-5.33); RED CELL DISTRIBUTION WIDTH 13.4 % (11.5-15.2)
[2017-04-29 07:42] LABS: INR 1.01 (0.83-1.16); PROTIME(PATIENT) 13.2 SEC (12.0-15.0)
[2017-04-29] MEDS: FAMOTIDINE 20 MG TAB PO SCH ×2 (08:34→21:16)
[2017-04-29] MEDS: ENOXAPARIN 40 MG/0.4 ML SYR SC SCH (08:34)
[2017-04-29] MEDS: SENNOSIDES/DOCUSATE SODIUM TAB PO SCH ×2 (08:34→21:16)
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
[2017-04-29] MEDS: WARFARIN SODIUM 5 MG TAB PO SCH (16:27)
[2017-04-29] MEDS: oxyCODONE CR 15 MG TAB PO SCH (21:15)
[2017-04-29] MEDS: GABAPENTIN 300 MG CAP PO SCH (21:16)
[2017-04-30] MEDS: oxyCODONE IR 5 MG TAB PO PRN ×4 (01:50→12:38)
[2017-04-30 06:19] VITALS: BP 113/77; PULSE 115; RESP 17; TEMP 97.5; O2SAT 92
[2017-04-30 07:50] LABS: INR 1.07 (0.83-1.16); PROTIME(PATIENT) 13.8 SEC (12.0-15.0)
[2017-04-30] MEDS: SENNOSIDES/DOCUSATE SODIUM TAB PO SCH (08:59)
[2017-04-30] MEDS: FAMOTIDINE 20 MG TAB PO SCH (08:59)
[2017-04-30] MEDS: ENOXAPARIN 40 MG/0.4 ML SYR SC SCH (09:00)
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
== END 2017-04-30 13:52 | disposition home health service (06) | DRG 945 ==
LOC: BREH 17:20
PROVIDERS: ADMIT Internal Medicine; ATTEND Internal Medicine
DX: S06.9X0D Unspecified intracranial injury without loss of consciousness, subsequent encounter (principal); S32.058D Other fracture of fifth lumbar vertebra, subsequent encounter for fracture with routine healing; S32.110D Nondisplaced Zone I fracture of sacrum, subsequent encounter for fracture with routine healing; S72.302D Unspecified fracture of shaft of left femur, subsequent encounter for closed fracture with routine healing; S82.52XD Displaced fracture of medial malleolus of left tibia, subsequent encounter for closed fracture with routine healing; S82.402E Unspecified fracture of shaft of left fibula, subsequent encounter for open fracture type I or II with routine healing; S02.11A Type I occipital condyle fracture, right side; S02.11GD Other fracture of occiput, right side, subsequent encounter for fracture with routine healing; D62 Acute posthemorrhagic anemia; R00.0 Tachycardia, unspecified; F19.10 Other psychoactive substance abuse, uncomplicated; V09.20XD Pedestrian injured in traffic accident involving unspecified motor vehicles, subsequent encounter
CPT/HCPCS: 92507-GN; 92522-GN; 97110-GP; 97116-GP; 97140-GP; 97162-GP; 97166-GO; 97530-GO; 97530-GP; 97535-GO; 99366-GO; J1650; Q9967

== ENCOUNTER 2017-05-14 06:12 | Day surgery (SDC) | payer OTHER, MEDICAID ==
[~2017-05-14 06:12] MED LIST: ceFAZolin 2 GM/DEXTROSE 100 ML IV ONE
[2017-05-14] MEDS ORDERED: LR 1,000 ML IV ONE (06:59)
[2017-05-14 07:29] LABS: % IMMATURE GRANULYOCYTES 0.2 % (0.0-1.1); ABSOLUTE IMMATURE GRANULOCYTES 0.01 10^3/uL (0.00-0.10); ADD DIFF? NO; ADD MORPH? NO; ADD SCAN? NO; ATYPICAL LYMPHOCYTE FLAG 30 (0-99); FRAGMENT RBC FLAG 0 (0-99); HEMATOCRIT 32.9 % (38.0-47.0); HEMOGLOBIN 10.7 g/dL (12.6-16.3); LEFT SHIFT FLG 0 (0-99); LIPEMIA HEMOLYSIS FLAG 80 (0-99); MEAN CELL HEMOGLOBIN 28.3 pg (27.9-34.1); MEAN CELL HEMOGLOBIN CONCENTR. 32.5 g/dL (32.4-36.7); MEAN PLATELET VOLUME 8.8 fL (8.7-11.7); PLATELET CLUMPS FLAG 0 (0-99); PLATELET COUNT 364 10^3/uL (150-400); RED BLOOD CELL COUNT 3.78 10^6/uL (4.18-5.33); RED CELL DISTRIBUTION WIDTH 12.9 % (11.5-15.2)
[2017-05-14] MEDS: fentaNYL 100 MCG/2 ML INJ IV PRN ×4 (07:33→10:31)
--- NOTE | 2017-05-14 07:33 | PDHPUP ---
History & Physical Update H&P update statement: This history and physical update is based on an assessment of the patient which was completed after admission or registration (within 24 hours), but prior to the surgery/procedure. H&P update: H&P reviewed & patient examined, no change in patient's condition since H&P completed
[2017-05-14 07:41] LABS: INR 1.15 (0.83-1.16); PROTIME(PATIENT) 14.6 SEC (12.0-15.0)
[2017-05-14] MEDS ORDERED: THROMBIN (BOVINE) 20,000 UNIT SPRAY TP ONE (09:10)
[2017-05-14] MEDS ORDERED: BUPIVACAINE 0.5% 30 ML SDV ONE (09:10)
[2017-05-14] MEDS ORDERED: MINERAL OIL 10 ML VIAL ONE ×2 (09:10→09:56)
[2017-05-14] MEDS ORDERED: PROPOFOL 200 MG/20 ML VIAL ONE (09:12)
[2017-05-14] MEDS ORDERED: morphINE *ANESTHESIA ONLY* 10 MG/ML VIAL ONE (09:12)
[2017-05-14] MEDS ORDERED: LIDOCAINE 2% 100 MG/5 ML SYR ONE (09:13)
[2017-05-14] MEDS ORDERED: METOCLOPRAMIDE 10 MG/2 ML VIAL ONE (09:13)
[2017-05-14] MEDS ORDERED: DEXAMETHASONE 4 MG/ML VIAL ONE (09:13)
--- NOTE | 2017-05-14 09:17 | PDANEPAE ---
ANE Past Medical History - Cardiovascular History Hx Hypertension: No Hx Arrhythmias: No Hx Chest Pain: No Hx Coronary Artery / Peripheral Vascular Disease: No Hx CHF / Valvular Disease: No Hx Palpitations: No - Pulmonary History Hx COPD: No Hx Asthma/Reactive Airway Disease: Yes Hx Recent Upper Respiratory Infection: No Hx Oxygen in Use at Home: No Hx Sleep Apnea: No Sleep Apnea Screening Result - Last Documented: Negative Pulmonary History Comment: MILD ASTHMA - INHALER - Neurologic History Hx Cerebrovascular Accident: No Hx Seizures: No Hx Dementia: No - Endocrine History Hx Diabetes: No - Renal History Hx Renal Disorders: No - Liver History Hx Hepatic Disorders: No - Neurological & Psychiatric Hx Hx Neurological and Psychiatric Disorders: No Neurological / Psychiatric History Comment: ANXIETY - Cancer History Hx Cancer: No - Congenital Disorder History Hx Congenital Disorders: No - GI History Hx Gastrointestinal Disorders: No - Other Health History Other Health History: ANEMIA DURING RECENT HOSP STAY AND GIVEN TRANSFUSION - Chronic Pain History Chronic Pain: No - Surgical History Prior Surgeries: 04/14/2017 L ANKLE, TIBIA & FEMUR/PELVIS ANE Review of Systems - Exercise capacity METS (RN): 4 METS - Systems Neurological: Reports: no symptoms, tremors, other (c spine fx) ANE Patient History - Allergies Allergies/Adverse Reactions: No Known Allergies Allergy (Verified 04/14/17 23:20) - Home Medications Home Medications: Albuterol 5 mg/ml INH 05/13/17 [Last Taken Unknown] - NPO status NPO Since - Liquids (Date): 05/13/17 NPO Since - Liquids (Time): 23:30 NPO Since - Solids (Date): 05/13/17 NPO Since - Solids (Time): 20:00 - Smoking Hx Smoking Status: Light smoker - Family Anes Hx Family Hx Anesthesia Complications: NEG ANE Labs/Vital Signs - Labs Result Diagrams: 05/14/17 07:10 - Vital Signs Blood Pressure: 126/75 Heart Rate: 98 Respiratory Rate: 16 O2 Sat (%): 100 Height: 162.56 cm Weight: 53.524 kg ANE Physical Exam - Airway Neck exam: C-collar in place Mallampati Score: Class 3 Mouth exam: normal dental/mouth exam - Pulmonary Pulmonary: no respiratory distress - Cardiovascular Cardiovascular: regular rate and rhythym - ASA Status ASA Status: II ANE Anesthesia Plan Anesthesia Plan: GA w LMA
[2017-05-14] MEDS ORDERED: HYDROmorphONE/DILAUDID 2 MG/ML INJ ONE (09:47)
[2017-05-14] MEDS ORDERED: HYDROCODONE/APAP 5/325 TAB PO PRN (10:25)
[2017-05-14] MEDS ORDERED: ACETAMINOPHEN 500 MG TAB PO PRN (10:25)
[2017-05-14] MEDS ORDERED: OXYCODONE/APAP 5/325 TAB PO PRN (10:25)
[2017-05-14] MEDS ORDERED: LR 500 ML IV PRN (10:25)
[2017-05-14] MEDS ORDERED: ONDANSETRON 4 MG/2 ML VIAL IVP PRN (10:25)
[2017-05-14] MEDS ORDERED: NALOXONE HCL 0.4 MG/ML INJ IVP PRN (10:25)
--- NOTE | 2017-05-14 10:25 | POSTANESTH ---
Post Anesthetic Evaluation Respiratory Status: Normal, Stable Level of Consciousness/Mental Status: Can Participate in Eval Pain Control: Adequate, Prn Tx Ordered Nausea/Vomiting Control: Adequate, Prn Tx Ordered Complications Possibly Related to Anesthesia: None Noted
[2017-05-14] MEDS ORDERED: fentaNYL 100 MCG/2 ML INJ ONE (10:29)
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
--- NOTE | 2017-05-14 10:34 | PDIAF ---
- Diagnosis Diagnosis: LLE traumatic wound Code Status: Full Code - Medication Management Discharge Medications: Medications to Continue on Transfer Polyethylene Glycol 3350 [Miralax 17 gm (*)] 17 gm PO DAILY PRN #0 pkt 04/23/17 [Last Taken 05/13/17 17:30] Gabapentin [Neurontin 300 MG (*)] 300 mg PO HS #30 cap 04/29/17 [Last Taken 23:30] Warfarin Sodium [Coumadin 5MG (*)] 5 mg PO DAILY AT 4PM #30 tab 04/29/17 [Last Taken 05/09/17 16:00] celeCOXIB [Celebrex (*)] 200 mg PO DAILY #30 cap 04/29/17 [Last Taken 05/13/17 20:00] Albuterol 5 mg/ml INH 05/13/17 [Last Taken Unknown] Discharge Medications: Refer to the Discharge Home Medication list for PRN reason. - Orders Services needed: Home Care, Registered Nurse Home Care Face to Face: I certify that this patient was under my care and that I had the required [id number] encounter meeting the encounter requirements on the discharge day. My findings support the fact that the patient is homebound as defined in CMS Chapter 7 Medicare Benefits Manual 30.1.1, The condition of the patient is such that there exists a normal inability to leave home and consequently, leaving home would require a considerable and taxing effort. Diet Recommendation: no restrictions on diet Diet Texture: Regular Texture Diet Wound Care Instructions: May change left upper thigh dressing as needed - mepilex transfer and tegaderm. Do not take down wound vac dressing! This will stay in place x 1 week uninterrupted - Follow Up Care Current Providers and Referrals: ALLEN VILLAVICENCIO [Primary Care Provider] - Mine Baumann PA [Physician Technician [employer]] - follow up in 1 week
[2017-05-14] MEDS ORDERED: HYDROmorphONE/DILAUDID 1 MG/ML SYR ONE (10:37)
[2017-05-14] MEDS: HYDROmorphONE/DILAUDID 1 MG/ML SYR IVP PRN ×2 (10:39→11:04)
[2017-05-14 12:28] VITALS: BP 108/76; PULSE 96; RESP 13; TEMP 97.5; O2SAT 94
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
== END 2017-05-14 12:34 | disposition home or self-care (01) ==
LOC: FSGY 06:12
PROVIDERS: ATTEND Surgery
PROC: 0JBM0ZZ Excision of Left Upper Leg Subcutaneous Tissue and Fascia, Open Approach (ICD-10-PCS; principal; 2017-05-14 08:30)
PROC: 0JU Subcutaneous Tissue and Fascia, Supplement (ICD-10-PCS; principal; 2017-05-14 08:30)
DX: S81.802D Unspecified open wound, left lower leg, subsequent encounter (principal); V09.20XD Pedestrian injured in traffic accident involving unspecified motor vehicles, subsequent encounter
CPT/HCPCS: J0171; J0690; J1100; J1170; J2001; J2704; J2765; J3010

== ENCOUNTER 2017-06-05 12:13 | Inpatient (IN) | payer MEDICAID ==
[2017-06-05] MEDS ORDERED: ONDANSETRON 4 MG/2 ML VIAL IVP ONE (12:31)
[2017-06-05] MEDS ORDERED: HYDROmorphONE/DILAUDID 1 MG/ML SYR IVP ONE (12:31)
[2017-06-05] MEDS ORDERED: KETAMINE 100 MG/10 ML SYR IVP ONE (12:32)
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
[2017-06-05] MEDS ORDERED: NS 1,000 ML IV ONE (12:34)
[2017-06-05 13:16] LABS: % IMMATURE GRANULYOCYTES 0.4 % (0.0-1.1); ABSOLUTE IMMATURE GRANULOCYTES 0.08 10^3/uL (0.00-0.10); ADD DIFF? NO; ADD MORPH? NO; ADD SCAN? NO; ATYPICAL LYMPHOCYTE FLAG 0 (0-99); FRAGMENT RBC FLAG 0 (0-99); HEMATOCRIT 31.5 % (38.0-47.0); HEMOGLOBIN 10.3 g/dL (12.6-16.3); LEFT SHIFT FLG 60 (0-99); LIPEMIA HEMOLYSIS FLAG 80 (0-99); MEAN CELL HEMOGLOBIN CONCENTR. 32.7 g/dL (32.4-36.7); MEAN CELL VOLUME 82.7 fL (81.5-99.8); MEAN PLATELET VOLUME 9.5 fL (8.7-11.7); PLATELET CLUMPS FLAG 0 (0-99); PLATELET COUNT 329 10^3/uL (150-400); RED BLOOD CELL COUNT 3.81 10^6/uL (4.18-5.33); RED CELL DISTRIBUTION WIDTH 13.2 % (11.5-15.2)
--- NOTE | 2017-06-05 13:18 | CPEKG ---
Heart Rate: 113 RR Interval: 531 P-R Interval: 136 QRSD Interval: 84 QT Interval: 320 QTC Interval: 439 P [place]: 35 QRS [place]: 36 T Wave [place]: -7 EKG Severity - BORDERLINE ECG - EKG Impression: SINUS TACHYCARDIA EKG Impression: BORDERLINE T ABNORMALITIES, INFERIOR LEADS Electronically Signed By: John Currie 05-Jun-2017 13:23:41
[2017-06-05 13:28] LABS: INR 1.85 (0.83-1.16); PROTIME(PATIENT) 21.1 SEC (12.0-15.0)
[2017-06-05 13:29] LABS: ANION GAP 16 mEq/L (8-16); BILIRUBIN,TOTAL 0.7 mg/dL (0.1-1.4); CALCIUM 8.7 mg/dL (8.5-10.4); CARBON DIOXIDE 23 mEq/l (22-31); CHLORIDE 97 mEq/L (97-110); CREATININE 0.5 mg/dL (0.6-1.0); GLOMERULAR FILTRATION RATE > 60; GLUCOSE 108 mg/dL (70-100); POTASSIUM 3.5 mEq/L (3.5-5.2); SODIUM 136 mEq/L (134-144)
[2017-06-05] MEDS ORDERED: VANCOMYCIN 1 GM in NS 250 ML IV ONE (13:32)
[2017-06-05] MEDS ORDERED: CEFEPIME HCL 2 GM in NS 100 ML IV ONE (13:32)
[2017-06-05] MEDS ORDERED: NS 1,600 ML IV ONE (13:32)
[2017-06-05] MEDS ORDERED: CLINDAMYCIN 600 MG/DEXTROSE 50 ML IV ONE (14:22)
[2017-06-05] MEDS ORDERED: KETAMINE 500 MG/10 ML VIAL IVP ONE (14:28)
[2017-06-05] MEDS ORDERED: KETAMINE 100 MG/10 ML SYR ONE (14:41)
[2017-06-05] MEDS ORDERED: PROMETHAZINE HCL 25 MG/ML INJ IVP PRN (15:52)
[2017-06-05] MEDS ORDERED: ONDANSETRON 4 MG/2 ML VIAL IVP PRN (15:52)
[2017-06-05] MEDS ORDERED: ZOLPIDEM TARTRATE 5 MG TAB PO PRN (15:52)
[2017-06-05] MEDS ORDERED: ONDANSETRON DISINTEGRATING 4 MG TAB PO PRN (15:52)
[2017-06-05] MEDS ORDERED: MAGNESIUM HYDROXIDE 30 ML UDCUP PO PRN (15:56)
[2017-06-05] MEDS ORDERED: ALBUTEROL 3 ML DEYVIAL IH PRN (15:56)
[2017-06-05] MEDS ORDERED: BISACODYL 10 MG SUPP PR PRN (15:56)
[2017-06-05] MEDS ORDERED: POLYETHYLENE GLYCOL 3350 17 GM PKT PO PRN (15:56)
[2017-06-05] MEDS ORDERED: LACTULOSE 20 GM/30 ML UDCUP PO PRN (15:56)
[2017-06-05] MEDS: LORazepam 0.5 MG TAB PO PRN (16:16)
[2017-06-05] MEDS: oxyCODONE IR 5 MG TAB PO PRN ×3 (16:17→22:55)
[2017-06-05] MEDS: ACETAMINOPHEN 325 MG TAB PO PRN ×2 (16:17→22:56)
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
[2017-06-05] MEDS ORDERED: GADOBUTROL 10 ML VIAL IVP ONE (18:48)
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
[2017-06-05] MEDS: PIPERACILLIN/TAZO 4.5 GM/DEX 100 ML IV SCH (20:13)
[2017-06-05] MEDS: HYDROmorphONE/DILAUDID 1 MG/ML SYR IVP PRN (21:03)
[2017-06-05] MEDS: SENNOSIDES/DOCUSATE SODIUM TAB PO SCH (21:12)
[2017-06-05] MEDS: CLINDAMYCIN 600 MG/DEXTROSE 50 ML IV SCH (21:12)
[2017-06-05] MEDS ORDERED: PHYTONADIONE 5 MG in NS 50 ML IV ONE (22:00)
[2017-06-06] MEDS: PIPERACILLIN/TAZO 4.5 GM/DEX 100 ML IV SCH ×5 (00:24→23:18)
[2017-06-06] MEDS: LORazepam 0.5 MG TAB PO PRN (00:29)
[2017-06-06] MEDS: HYDROmorphONE/DILAUDID 1 MG/ML SYR IVP PRN ×2 (01:03→08:45)
[2017-06-06] MEDS ORDERED: CALCIUM CARBONATE 500 MG CHEWABLE TAB PO PRN (01:17)
[2017-06-06] MEDS ORDERED: NALOXONE HCL 0.4 MG/ML INJ IVP PRN ×2 (01:17→13:05)
[2017-06-06] MEDS: HYDROmorphONE/DILAUDID 6 MG/30 ML PCA IV PRN ×2 (01:26→23:08)
[2017-06-06] MEDS: NS 1,000 ML IV SCH ×2 (02:09→23:23)
[2017-06-06 03:15] LABS: COLOR PALE YELLOW; LEUKOCYTE ESTERASE,URINE NEGATIVE (NEGATIVE); NITRITE,URINE NEGATIVE (NEGATIVE)
[2017-06-06] MEDS: VANCOMYCIN 750 MG in D5W 150 ML IV SCH ×2 (03:34→16:12)
[2017-06-06 04:01] LABS: % IMMATURE GRANULYOCYTES 0.4 % (0.0-1.1); ABSOLUTE IMMATURE GRANULOCYTES 0.06 10^3/uL (0.00-0.10); ADD DIFF? NO; ADD MORPH? NO; ADD SCAN? NO; ATYPICAL LYMPHOCYTE FLAG 0 (0-99); FRAGMENT RBC FLAG 0 (0-99); HEMATOCRIT 23.9 % (38.0-47.0); HEMOGLOBIN 7.8 g/dL (12.6-16.3); LEFT SHIFT FLG 80 (0-99); LIPEMIA HEMOLYSIS FLAG 80 (0-99); MEAN CELL HEMOGLOBIN 27.6 pg (27.9-34.1); MEAN CELL HEMOGLOBIN CONCENTR. 32.6 g/dL (32.4-36.7); MEAN CELL VOLUME 84.5 fL (81.5-99.8); MEAN PLATELET VOLUME 9.2 fL (8.7-11.7); PLATELET CLUMPS FLAG 0 (0-99); PLATELET COUNT 242 10^3/uL (150-400); RED BLOOD CELL COUNT 2.83 10^6/uL (4.18-5.33); RED CELL DISTRIBUTION WIDTH 13.2 % (11.5-15.2)
[2017-06-06 04:11] LABS: INR 1.69 (0.83-1.16); PROTIME(PATIENT) 19.9 SEC (12.0-15.0)
[2017-06-06 04:18] LABS: ALANINE AMINOTRANSFERASE 21 IU/L (9-52); ALBUMIN 2.5 g/dL (3.5-5.0); ALKALINE PHOSPHATASE 88 IU/L (38-126); ANION GAP 10 mEq/L (8-16); ASPARTATE AMINOTRANSFERASE 13 IU/L (14-46); BILIRUBIN,TOTAL 0.4 mg/dL (0.1-1.4); BILIRUBIN-CONJUGATED 0.4 mg/dL (0.0-0.5); CALCIUM 7.7 mg/dL (8.5-10.4); CARBON DIOXIDE 21 mEq/l (22-31); CHLORIDE 105 mEq/L (97-110); CREATININE 0.5 mg/dL (0.6-1.0); GLOMERULAR FILTRATION RATE > 60; GLUCOSE 107 mg/dL (70-100); POTASSIUM 3.3 mEq/L (3.5-5.2); SODIUM 136 mEq/L (134-144)
[2017-06-06] MEDS: CLINDAMYCIN 600 MG/DEXTROSE 50 ML IV SCH ×3 (07:10→21:32)
[2017-06-06] MEDS: SENNOSIDES/DOCUSATE SODIUM TAB PO SCH ×2 (07:11→21:31)
[2017-06-06] MEDS ORDERED: ALBUTEROL INH PREPACK MDI TAKEHOME PRN (09:38)
[2017-06-06] MEDS ORDERED: ALBUTEROL 200 PUFFS/18 GM MDI IH PRN (09:51)
--- NOTE | 2017-06-06 10:21 | PCMIDPN ---
Assessment/Plan: Assessment/Plan: 1. Sepsis secondary to left posterior thigh abscess: - for I & D later today -Prelminary cx from ER swab noted. Recommend OR cultures to be taken -Continue with broad spectrum antibiotics with Vanco, Zosyn, clinda for now -Will f/u cultures and direct therapy accordingly. -Labs slightly improved, reviewed results with patient. -Blood cx pending -will set up vanco trough -care coordinated with surgery med vanco 750mg q12- zosyn 4.5gm q6 clinda 600mg q8 Subjective: Still with intermittent fevers. reaction to FFP with swelling of right upper eyelid and left forearm welt. Denies sob, throat swelling. continues with pain involving left thigh. tearful today. Objective: Vital Signs Temp Pulse Resp BP Pulse Ox 37.6 C 115 H 17 97/68 L 98 06/06/17 08:08 06/06/17 08:08 06/06/17 08:08 06/06/17 08:08 06/06/17 03:56 Laboratory Results 06/06/17 03:53 06/06/17 03:53 06/05/17 06/06/17 06/07/17 05:59 05:59 05:59 Intake Total 4507 1629 Output Total 2250 400 Balance 2257 1229 C-Reactive Protein 255.0 mg/L (<10.0) H 06/05/17 13:08 - Physical Exam General Appearance: alert, no apparent distress Respiratory: lungs clear Cardiac/Chest: regular rate, rhythm Extremities: swelling (left thigh with erythema.) Abdomen: normal bowel sounds, non-tender, soft, No distended Skin: erythema ICD10 Worksheet Patient Problems: Problems Problem Status Onset Cellulitis of left thigh Acute Anemia Acute Femur fracture, left Acute Hypokalemia Acute Leukocytosis Acute Lumbar transverse process fracture Acute Sacral fracture Acute Skull fracture Acute Tibia/fibula fracture Acute
[2017-06-06] MEDS ORDERED: ALTEPLASE 2 MG VIAL IVP PRN (10:28)
--- NOTE | 2017-06-06 11:15 | SOAPPROG ---
SOAP Progress Note Assessment/Plan: Assessment: 21yo F HD#1 L posterior thigh abscess with sepsis S/p FFP this morning with transfusion reaction of allergic hives INR 1.69 - hold coumadin OR at noon with Dr. Barton for I&D left thigh abscess Will send cultures from OR NPO IV antibiotics per ID Consent signed in chart Additionally seen by Dr. Barton last night and pre-op Appreciate hospitalists and ID Objective: Vital Signs Temp Pulse Resp BP Pulse Ox 37.0 C 111 H 18 120/62 93 06/06/17 10:47 06/06/17 10:47 06/06/17 10:47 06/06/17 10:47 06/06/17 10:47 Laboratory Results 06/06/17 03:53 06/06/17 03:53 06/05/17 06/06/17 06/07/17 05:59 05:59 05:59 Intake Total 4507 1629 Output Total 2250 400 Balance 2257 1229 PT 19.9 SEC (12.0-15.0) H 06/06/17 03:53 INR 1.69 (0.83-1.16) H 06/06/17 03:53 ICD10 Worksheet Patient Problems: Problems Problem Status Onset Cellulitis of left thigh Acute Anemia Acute Femur fracture, left Acute Hypokalemia Acute Leukocytosis Acute Lumbar transverse process fracture Acute Sacral fracture Acute Skull fracture Acute Tibia/fibula fracture Acute
[2017-06-06] MEDS ORDERED: POLYMYXIN B SULFATE 500,000 UNIT/10 ML SYR IRR ONE (12:02)
[2017-06-06] MEDS ORDERED: BACITRACIN 50,000 UNITS/10 ML SYR IRR ONE (12:02)
[2017-06-06] MEDS ORDERED: BUPIVACAINE 0.5% 30 ML SDV ONE (12:02)
[2017-06-06] MEDS ORDERED: MIDAZOLAM 2 MG/2 ML VIAL ONE ×2 (12:24)
[2017-06-06] MEDS ORDERED: fentaNYL 100 MCG/2 ML INJ ONE (12:27)
[2017-06-06] MEDS ORDERED: PROPOFOL/EMULSION 500 MG/50 ML BOTTLE IV ONE (12:30)
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
[2017-06-06] MEDS ORDERED: THROMBIN (BOVINE) 20,000 UNIT SPRAY TP ONE (13:07)
--- NOTE | 2017-06-06 13:44 | POSTANESTH ---
Post Anesthetic Evaluation Respiratory Status: Normal, Stable Level of Consciousness/Mental Status: Mildly Sleepy, Arousable Pain Control: Adequate, Prn Tx Ordered Nausea/Vomiting Control: Adequate, Prn Tx Ordered Complications Possibly Related to Anesthesia: None Noted (Myrick inserted while sedated, awake and responsive in RR)
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
[2017-06-06] MEDS: oxyCODONE IR 5 MG TAB PO PRN (15:05)
[2017-06-06] MEDS: GABAPENTIN 300 MG CAP PO SCH ×2 (15:05→21:31)
[2017-06-06] MEDS: LORazepam 2 MG/ML INJ IVP PRN (15:05)
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
[2017-06-06] MEDS: morphINE SR 15 MG TAB PO SCH (21:31)
[2017-06-07 03:25] LABS: % IMMATURE GRANULYOCYTES 0.8 % (0.0-1.1); ABSOLUTE IMMATURE GRANULOCYTES 0.14 10^3/uL (0.00-0.10); ADD DIFF? NO; ADD MORPH? NO; ADD SCAN? NO; ATYPICAL LYMPHOCYTE FLAG 0 (0-99); FRAGMENT RBC FLAG 0 (0-99); HEMATOCRIT 24.8 % (38.0-47.0); LEFT SHIFT FLG 40 (0-99); LIPEMIA HEMOLYSIS FLAG 80 (0-99); MEAN CELL HEMOGLOBIN 27.3 pg (27.9-34.1); MEAN CELL HEMOGLOBIN CONCENTR. 32.3 g/dL (32.4-36.7); MEAN CELL VOLUME 84.6 fL (81.5-99.8); MEAN PLATELET VOLUME 9.2 fL (8.7-11.7); PLATELET CLUMPS FLAG 0 (0-99); PLATELET COUNT 305 10^3/uL (150-400); RED BLOOD CELL COUNT 2.93 10^6/uL (4.18-5.33); RED CELL DISTRIBUTION WIDTH 13.5 % (11.5-15.2)
[2017-06-07 03:54] LABS: ANION GAP 11 mEq/L (8-16); CALCIUM 7.8 mg/dL (8.5-10.4); CARBON DIOXIDE 26 mEq/l (22-31); CHLORIDE 105 mEq/L (97-110); CREATININE 0.5 mg/dL (0.6-1.0); GLOMERULAR FILTRATION RATE > 60; GLUCOSE 120 mg/dL (70-100); POTASSIUM 3.2 mEq/L (3.5-5.2); SODIUM 142 mEq/L (134-144)
[2017-06-07] MEDS: VANCOMYCIN 750 MG in D5W 150 ML IV SCH (04:45)
[2017-06-07] MEDS ORDERED: VANCOMYCIN HCL/NORMAL SALINE 250 ML IV ONE (05:00)
[2017-06-07] MEDS: CLINDAMYCIN 600 MG/DEXTROSE 50 ML IV SCH (05:04)
[2017-06-07] MEDS: PIPERACILLIN/TAZO 4.5 GM/DEX 100 ML IV SCH ×3 (05:11→17:35)
[2017-06-07] MEDS: morphINE SR 15 MG TAB PO SCH ×2 (08:16→21:19)
[2017-06-07] MEDS: GABAPENTIN 300 MG CAP PO SCH ×3 (08:16→21:19)
[2017-06-07] MEDS: SENNOSIDES/DOCUSATE SODIUM TAB PO SCH ×2 (08:42→21:21)
--- NOTE | 2017-06-07 10:28 | GOP ---
[f rep st] OPERATIVE REPORT DATE OF OPERATION: 06/06/2017 SURGEON: Manav Barton MD MUSIC MIXER: TIA Luis ANESTHESIOLOGIST: Dr. Diana. PREOPERATIVE DIAGNOSIS: Left thigh abscess. POSTOPERATIVE DIAGNOSIS: Large infected left thigh seroma. PROCEDURE PERFORMED: Incision and drainage of an infected posterior left thigh seroma. FINDINGS: Patient was found have a large volume, over 20 cm abscess cavity. Basically, a seroma ca vity in the left posterior thigh. DESCRIPTION OF PROCEDURE: The patient was brought to the operating room, where she received satisfa ctory general endotracheal anesthesia by Dr. Diana. She was placed in the right lateral decubitus position, prepped and draped in usual sterile fashion. The fluctuant area was aspirated and contain ed pure pus. This was sent for culture. A 1-1/2-inch incision was made near the aspiration site, a nd a large volume of purulent material was suctioned free. The cavity was then copiously irrigated. Then some large 1-inch Dwayne drains were placed above and below the incision site and anchored a t the skin with 2-0 nylon sutures. The wound was dressed. She tolerated the procedure well and was taken to recovery room in good condition. /[id number]/MODL
--- NOTE | 2017-06-07 11:00 | SOAPPROG ---
SOAP Progress Note Assessment/Plan: Assessment: AFEBRILE/ WOUND OK/ FEELS MUCH BETTER BUT SEDATED PRESENTLY Plan:CONTINUE WOUND CARE 06/07/17 10:59 Objective: Vital Signs Temp Pulse Resp BP Pulse Ox 36.7 C 100 19 100/59 L 96 06/07/17 08:00 06/07/17 08:00 06/07/17 08:00 06/07/17 08:00 06/07/17 08:00 Microbiology 06/06/17 13:15 Gram Stain - Final Leg - Aspirate Laboratory Results 06/07/17 03:10 06/07/17 03:10 06/06/17 06/07/17 06/08/17 05:59 05:59 05:59 Intake Total 4507 6053 Output Total 2250 4520 1275 Balance 2257 1533 -1275 PT 19.9 SEC (12.0-15.0) H 06/06/17 03:53 INR 1.69 (0.83-1.16) H 06/06/17 03:53 ICD10 Worksheet Patient Problems: Problems Problem Status Onset Cellulitis of left thigh Acute Anemia Acute Femur fracture, left Acute Hypokalemia Acute Leukocytosis Acute Lumbar transverse process fracture Acute Sacral fracture Acute Skull fracture Acute Tibia/fibula fracture Acute
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
--- NOTE | 2017-06-07 12:58 | PCMIDPN ---
Assessment/Plan: Assessment/Plan: * Sepsis secondary to infected posterior thigh seroma status post incision and drainage: Operative findings noted with large infected seroma which was drained. Initial cultures with growth of MSSA and non lactose fermenting gram- negative louann. Operative specimen showing gram-positive cocci. Based on culture findings, will discontinue vancomycin and clindamycin and continue with Zosyn alone. Await further culture data as available. Follow-up upper thigh where remains tender over time. 06/07/17 12:55 Subjective: Patient complains of pain in upper thigh on left. Operative findings noted of infected seroma. Objective: Vital Signs Temp Pulse Resp BP Pulse Ox 36.7 C 95 17 92/46 L 93 06/07/17 11:48 06/07/17 11:48 06/07/17 11:48 06/07/17 11:48 06/07/17 11:48 Microbiology 06/06/17 13:15 Gram Stain - Final Leg - Aspirate Laboratory Results 06/07/17 03:10 06/07/17 03:10 06/06/17 06/07/17 06/08/17 05:59 05:59 05:59 Intake Total 4507 6053 Output Total 2250 4520 1275 Balance 2257 1533 -1275 C-Reactive Protein 255.0 mg/L (<10.0) H 06/05/17 13:08 Vancomycin # 2 Zosyn # 2 Clindamycin # 2 Cultures with growth of MSSA and non lactose fermenting gram-negative louann Operative cultures with GPC on Gram stain, culture pending - Physical Exam General Appearance: alert, no apparent distress EENT: No scleral icterus, No conjunctival petechiae Cardiac/Chest: regular rate, rhythm Extremities: inflammation (Left thigh tender superiorly with mild induration; Cotulla drains in place with no overlying erythema) Abdomen: non-tender, No distended Skin: No embolic lesions ICD10 Worksheet Patient Problems: Problems Problem Status Onset Cellulitis of left thigh Acute Anemia Acute Femur fracture, left Acute Hypokalemia Acute Leukocytosis Acute Lumbar transverse process fracture Acute Sacral fracture Acute Skull fracture Acute Tibia/fibula fracture Acute
[2017-06-08] MEDS: PIPERACILLIN/TAZO 4.5 GM/DEX 100 ML IV SCH ×3 (00:23→12:37)
[2017-06-08 03:47] LABS: HEMATOCRIT 24.7 % (38.0-47.0); HEMOGLOBIN 7.9 g/dL (12.6-16.3); MEAN CELL HEMOGLOBIN 27.4 pg (27.9-34.1); MEAN CELL VOLUME 85.8 fL (81.5-99.8); RED BLOOD CELL COUNT 2.88 10^6/uL (4.18-5.33); RED CELL DISTRIBUTION WIDTH 13.5 % (11.5-15.2)
[2017-06-08 04:00] LABS: ANION GAP 11 mEq/L (8-16); CALCIUM 8.2 mg/dL (8.5-10.4); CARBON DIOXIDE 28 mEq/l (22-31); CHLORIDE 105 mEq/L (97-110); CREATININE 0.4 mg/dL (0.6-1.0); GLOMERULAR FILTRATION RATE > 60; GLUCOSE 94 mg/dL (70-100); POTASSIUM 3.1 mEq/L (3.5-5.2); SODIUM 144 mEq/L (134-144)
[2017-06-08] MEDS ORDERED: POTASSIUM CL 20 MEQ TAB PO ONE (04:08)
[2017-06-08] MEDS ORDERED: PROTOCOL POTASSIUM 1 DOSE MISC PRN (08:52)
[2017-06-08] MEDS: morphINE SR 15 MG TAB PO SCH ×2 (10:03→20:41)
[2017-06-08] MEDS: SENNOSIDES/DOCUSATE SODIUM TAB PO SCH ×2 (10:03→20:40)
[2017-06-08] MEDS: GABAPENTIN 300 MG CAP PO SCH ×3 (10:03→20:41)
--- NOTE | 2017-06-08 11:16 | SOAPPROG ---
SOAP Progress Note Assessment/Plan: Assessment: AFEBRILE/ WOUND OK/ FEELS MUCH BETTER BUT SEDATED PRESENTLY Plan:CONTINUE WOUND CARE 06/07/17 10:59 06/08/17 11:15 AFEBRILE/ WOUND CLEAN AND STABLE/ MINIMAL DRAINAGE/ MORE COMFORTABLE Objective: Vital Signs Temp Pulse Resp BP Pulse Ox 36.9 C 88 20 115/66 97 06/08/17 08:58 06/08/17 08:58 06/08/17 08:58 06/08/17 08:58 06/08/17 08:58 Microbiology 06/06/17 13:15 Gram Stain - Final Leg - Aspirate Laboratory Results 06/08/17 02:33 06/08/17 02:33 06/07/17 06/08/17 06/09/17 05:59 05:59 05:59 Intake Total 6053 2393 Output Total 4520 2225 Balance 1533 168 PT 19.9 SEC (12.0-15.0) H 06/06/17 03:53 INR 1.69 (0.83-1.16) H 06/06/17 03:53 ICD10 Worksheet Patient Problems: Problems Problem Status Onset Cellulitis of left thigh Acute Anemia Acute Femur fracture, left Acute Hypokalemia Acute Leukocytosis Acute Lumbar transverse process fracture Acute Sacral fracture Acute Skull fracture Acute Tibia/fibula fracture Acute
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
[2017-06-08] MEDS: ENOXAPARIN 40 MG/0.4 ML SYR SC SCH (16:15)
--- NOTE | 2017-06-08 16:34 | PCMIDPN ---
Assessment/Plan: Assessment/Plan: * Sepsis secondary to infected posterior thigh seroma status post incision and drainage: Clinically improved with decreased induration superiorly over left thigh. Operative findings noted with large infected seroma which was drained. Operative cultures only showing growth of MSSA. Wound cultures obtained at time of presentation showing MSSA, stenotrophomonas, and Enterobacter. Suspect primary pathogen is MSSA as initial cultures were not obtained from deep culture. These may represent skin colonization rather than true pathogens. Based on these findings, will discontinue Zosyn and transition to cefazolin for narrow targeting of MSSA. Continue to follow clinical exam over time. 06/08/17 16:31 Subjective: Patient with persistent thigh pain but less prominent than previous. Able to walk short distance with physical therapy. Objective: Vital Signs Temp Pulse Resp BP Pulse Ox 36.7 C 92 18 115/69 95 06/08/17 16:18 06/08/17 16:18 06/08/17 16:18 06/08/17 16:18 06/08/17 16:18 Microbiology 06/06/17 13:15 Gram Stain - Final Leg - Aspirate Laboratory Results 06/08/17 02:33 06/08/17 02:33 06/07/17 06/08/17 06/09/17 05:59 05:59 05:59 Intake Total 6053 2393 Output Total 4520 2225 Balance 1533 168 C-Reactive Protein 255.0 mg/L (<10.0) H 06/05/17 13:08 Zosyn # 3 Operative culture with growth of MSSA Blood cultures x2 no growth - Physical Exam General Appearance: alert, no apparent distress EENT: No scleral icterus Respiratory: lungs clear, No respiratory distress Cardiac/Chest: regular rate, rhythm Extremities: inflammation (Left posterior thigh superiorly with persistent tenderness but less prominent induration; minimal overlying erythema; minimal drainage from Dwayne drain site; no surrounding cellulitis at drain site; donor graft site without signs of infection; lower leg graft site with some fibrinous slough laterally but no active signs of infection) Abdomen: non-tender, No distended - Line/s RUE PICC Lines: No drainage, No erythema ICD10 Worksheet Patient Problems: Problems Problem Status Onset Cellulitis of left thigh Acute Anemia Acute Femur fracture, left Acute Hypokalemia Acute Leukocytosis Acute Lumbar transverse process fracture Acute Sacral fracture Acute Skull fracture Acute Tibia/fibula fracture Acute
[2017-06-08 19:20] LABS: POTASSIUM 3.7 mEq/L (3.5-5.2)
[2017-06-08] MEDS ORDERED: ceFAZolin 2 GM/DEXTROSE 100 ML IV SCH (20:00)
[2017-06-08] MEDS: LORazepam 0.5 MG TAB PO PRN (20:40)
[2017-06-08] MEDS ORDERED: POTASSIUM CL 10 MEQ TAB PO ONE ×2 (20:53→23:45)
[2017-06-09] MEDS: oxyCODONE IR 5 MG TAB PO PRN ×4 (00:04→16:22)
[2017-06-09] MEDS: ceFAZolin 2 GM/DEXTROSE 100 ML IV SCH ×3 (06:06→21:20)
[2017-06-09] MEDS: LORazepam 0.5 MG TAB PO PRN (06:07)
[2017-06-09] MEDS: ENOXAPARIN 40 MG/0.4 ML SYR SC SCH (09:42)
[2017-06-09] MEDS: SENNOSIDES/DOCUSATE SODIUM TAB PO SCH ×2 (09:42→21:50)
[2017-06-09] MEDS: morphINE SR 15 MG TAB PO SCH ×2 (09:42→21:50)
[2017-06-09] MEDS: GABAPENTIN 300 MG CAP PO SCH ×3 (09:42→21:50)
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
[2017-06-09] MEDS ORDERED: NS W/ 20 KCl/L 1,000 ML IV SCH (11:00)
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
--- NOTE | 2017-06-09 15:33 | PCMIDPN ---
Assessment/Plan: Assessment/Plan: * Sepsis secondary to infected posterior thigh seroma status post incision and drainage: Continued improvement clinically post incision and drainage. Superior thigh softer with decreasing induration. No significant overlying cellulitis. Continue cefazolin targeting MSSA as outlined in my note 06/08/2017. 06/09/17 17:31 Subjective: Patient complains of left thigh pain. Less prominent than prior. Objective: Vital Signs Temp Pulse Resp BP Pulse Ox 36.9 C 75 16 86/47 L 95 06/09/17 15:09 06/09/17 15:09 06/09/17 15:09 06/09/17 15:09 06/09/17 15:09 Microbiology 06/06/17 13:15 Gram Stain - Final Leg - Aspirate Laboratory Results 06/08/17 02:33 06/09/17 06:00 06/08/17 06/09/17 06/10/17 05:59 05:59 05:59 Intake Total 2393 1700 Output Total 2225 2400 450 Balance 168 -700 -450 C-Reactive Protein 255.0 mg/L (<10.0) H 06/05/17 13:08 Cefazolin # 2, antibiotics # 4 - Physical Exam General Appearance: alert, no apparent distress EENT: No scleral icterus Respiratory: lungs clear, No respiratory distress Cardiac/Chest: regular rate, rhythm Extremities: inflammation (Left thigh with minimal drainage around Dwayne site ; upper thigh with decreased induration and tenderness; no significant erythema ; no fluctuance) Abdomen: non-tender, No distended - Line/s RUE PICC Lines: No drainage, No erythema ICD10 Worksheet Patient Problems: Problems Problem Status Onset Cellulitis of left thigh Acute Anemia Acute Femur fracture, left Acute Hypokalemia Acute Leukocytosis Acute Lumbar transverse process fracture Acute Sacral fracture Acute Skull fracture Acute Tibia/fibula fracture Acute
[2017-06-09] MEDS: ACETAMN/DIPHENHYDRAMINE 500/25MG TAB PO PRN (22:41)
[2017-06-10] MEDS: ceFAZolin 2 GM/DEXTROSE 100 ML IV SCH ×3 (04:44→20:53)
[2017-06-10 05:10] LABS: ADD DIFF? YES; ADD MORPH? NO; ADD SCAN? NO; ATYPICAL LYMPHOCYTE FLAG 40 (0-99); FRAGMENT RBC FLAG 0 (0-99); HEMATOCRIT 29.5 % (38.0-47.0); HEMOGLOBIN 9.3 g/dL (12.6-16.3); LEFT SHIFT FLG 20 (0-99); LIPEMIA HEMOLYSIS FLAG 80 (0-99); MEAN CELL HEMOGLOBIN CONCENTR. 31.5 g/dL (32.4-36.7); MEAN CELL VOLUME 85.5 fL (81.5-99.8); MEAN PLATELET VOLUME 8.5 fL (8.7-11.7); PLATELET CLUMPS FLAG 10 (0-99); PLATELET COUNT 440 10^3/uL (150-400); RED BLOOD CELL COUNT 3.45 10^6/uL (4.18-5.33); RED CELL DISTRIBUTION WIDTH 13.4 % (11.5-15.2)
[2017-06-10 05:18] LABS: INR 1.1 (0.83-1.16); PROTIME(PATIENT) 14.1 SEC (12.0-15.0)
[2017-06-10 05:26] LABS: ANION GAP 12 mEq/L (8-16); CARBON DIOXIDE 28 mEq/l (22-31); CHLORIDE 103 mEq/L (97-110); CREATININE 0.5 mg/dL (0.6-1.0); GLOMERULAR FILTRATION RATE > 60; GLUCOSE 100 mg/dL (70-100); POTASSIUM 4.5 mEq/L (3.5-5.2); SODIUM 143 mEq/L (134-144)
[2017-06-10 05:39] LABS: PLATELET ESTIMATE ADEQUATE (ADEQ)
[2017-06-10] MEDS: ENOXAPARIN 40 MG/0.4 ML SYR SC SCH (10:13)
[2017-06-10] MEDS: SENNOSIDES/DOCUSATE SODIUM TAB PO SCH ×2 (10:13→21:55)
[2017-06-10] MEDS: GABAPENTIN 300 MG CAP PO SCH ×3 (10:14→20:54)
[2017-06-10] MEDS: morphINE SR 15 MG TAB PO SCH ×2 (10:14→20:53)
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
[2017-06-10] MEDS: oxyCODONE IR 5 MG TAB PO PRN ×2 (13:49→20:52)
--- NOTE | 2017-06-10 16:40 | PCMIDPN ---
Assessment/Plan: Assessment/Plan: * Sepsis secondary to infected posterior thigh seroma status post incision and drainage: Induration and tenderness over posterior thigh continue to improve. No significant drainage from around Dwayne drains. Continue cefazolin for at least 7 days with possible transition to oral therapy to complete course of antibiotics if shows continued improvement. 06/10/17 16:38 Subjective: Patient describes less thigh pain. No diarrhea. Objective: Vital Signs Temp Pulse Resp BP Pulse Ox 36.6 C 121 H 17 118/73 97 06/10/17 15:30 06/10/17 15:30 06/10/17 15:30 06/10/17 15:30 06/10/17 15:30 Microbiology 06/06/17 13:15 Gram Stain - Final Leg - Aspirate Laboratory Results 06/10/17 04:50 06/10/17 04:50 06/09/17 06/10/17 06/11/17 05:59 05:59 05:59 Intake Total 1700 2100 Output Total 2400 450 1150 Balance -700 1650 -1150 C-Reactive Protein 255.0 mg/L (<10.0) H 06/05/17 13:08 Cefazolin # 3 Antibiotics # 5 Blood cultures x2 no growth - Physical Exam General Appearance: alert, no apparent distress EENT: pharynx normal, No scleral icterus Respiratory: lungs clear, No respiratory distress Cardiac/Chest: regular rate, rhythm Extremities: inflammation (Left posterior thigh with decreased induration and no overlying erythema; tenderness decreased; Dwayne in place with no expressible drainage) Abdomen: non-tender, No distended ICD10 Worksheet Patient Problems: Problems Problem Status Onset Cellulitis of left thigh Acute Anemia Acute Femur fracture, left Acute Hypokalemia Acute Leukocytosis Acute Lumbar transverse process fracture Acute Sacral fracture Acute Skull fracture Acute Tibia/fibula fracture Acute
--- NOTE | 2017-06-10 20:31 | SOAPPROG ---
SOAP Progress Note Assessment/Plan: Assessment: s/p drainage of infected seroma Minimal drainage May remove gaurav and change to packing ABX per ID Skin graft looks great. Small piece of epifix over tendon Plan: 06/10/17 20:30 Objective: Vital Signs Temp Pulse Resp BP Pulse Ox 36.6 C 121 H 17 118/73 97 06/10/17 15:30 06/10/17 15:30 06/10/17 15:30 06/10/17 15:30 06/10/17 15:30 Microbiology 06/06/17 13:15 Gram Stain - Final Leg - Aspirate Laboratory Results 06/10/17 04:50 06/10/17 04:50 06/09/17 06/10/17 06/11/17 05:59 05:59 05:59 Intake Total 1700 2100 Output Total 2400 450 1150 Balance -700 1650 -1150 PT 14.1 SEC (12.0-15.0) 06/10/17 04:50 INR 1.10 (0.83-1.16) 06/10/17 04:50 ICD10 Worksheet Patient Problems: Problems Problem Status Onset Cellulitis of left thigh Acute Anemia Acute Femur fracture, left Acute Hypokalemia Acute Leukocytosis Acute Lumbar transverse process fracture Acute Sacral fracture Acute Skull fracture Acute Tibia/fibula fracture Acute
[2017-06-10] MEDS: LORazepam 0.5 MG TAB PO PRN (23:04)
[2017-06-11] MEDS: METHOCARBAMOL 750 MG TAB PO PRN ×2 (00:32→21:48)
[2017-06-11] MEDS: ceFAZolin 2 GM/DEXTROSE 100 ML IV SCH ×2 (04:28→11:56)
[2017-06-11 04:59] LABS: ADD DIFF? YES; ADD SCAN? NO; ATYPICAL LYMPHOCYTE FLAG 20 (0-99); HEMATOCRIT 30.7 % (38.0-47.0); HEMOGLOBIN 9.7 g/dL (12.6-16.3); LEFT SHIFT FLG 30 (0-99); LIPEMIA HEMOLYSIS FLAG 80 (0-99); MEAN CELL HEMOGLOBIN 26.9 pg (27.9-34.1); MEAN CELL HEMOGLOBIN CONCENTR. 31.6 g/dL (32.4-36.7); MEAN CELL VOLUME 85.3 fL (81.5-99.8); MEAN PLATELET VOLUME 8.6 fL (8.7-11.7); PLATELET CLUMPS FLAG 10 (0-99); PLATELET COUNT 535 10^3/uL (150-400); RED CELL DISTRIBUTION WIDTH 13.5 % (11.5-15.2)
[2017-06-11 05:03] LABS: ADD MORPH? NO; FRAGMENT RBC FLAG 100 (0-99); POTASSIUM 4.5 mEq/L (3.5-5.2)
[2017-06-11 05:42] LABS: PLATELET ESTIMATE INCREASED (ADEQ)
[2017-06-11] MEDS: GABAPENTIN 300 MG CAP PO SCH ×3 (10:04→21:49)
[2017-06-11] MEDS: morphINE SR 15 MG TAB PO SCH ×2 (10:04→20:38)
[2017-06-11] MEDS: ENOXAPARIN 40 MG/0.4 ML SYR SC SCH (10:05)
[2017-06-11] MEDS: SENNOSIDES/DOCUSATE SODIUM TAB PO SCH ×2 (10:05→20:38)
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
[2017-06-11] MEDS: HYDROmorphONE/DILAUDID 1 MG/ML SYR IVP PRN (11:49)
[2017-06-11] MEDS: LORazepam 2 MG/ML INJ IVP PRN (11:53)
--- NOTE | 2017-06-11 13:18 | PCMIDPN ---
Assessment/Plan: # L thigh MSSA infected seroma s/p evacuation. Wound bed WITHOUT evidence of purulence, cellulitis but significant tracking below skin. Steno/enterobacter were wound colonizer on admit. Skin grafts appear to be healing well. --decrease dose cefazolin to 1gm IV q8h, plan 3 more days --discuss with other providers timing of discharge, tentatively plan Wednesday --place wound vac today Day #4/ Cefazolin IV micro 06/06 Surgical Cx: MSSA Subjective: feeling well minimal pain L thigh Objective: Vital Signs Temp Pulse Resp BP Pulse Ox 36.6 C 97 15 107/62 96 06/11/17 11:14 06/11/17 11:14 06/11/17 11:14 06/11/17 11:14 06/11/17 11:14 Microbiology 06/06/17 13:15 Gram Stain - Final Leg - Aspirate Laboratory Results 06/11/17 04:40 06/11/17 04:40 06/10/17 06/11/17 06/12/17 05:59 05:59 05:59 Intake Total 2100 800 Output Total 450 1450 Balance 1650 -650 C-Reactive Protein 255.0 mg/L (<10.0) H 06/05/17 13:08 - Physical Exam General Appearance: alert, no apparent distress, thin EENT: No scleral icterus Respiratory: lungs clear, No accessory muscle use Cardiac/Chest: regular rate, rhythm Extremities: other (L lateral thigh with wound [id number]. Underminin.5cm from 6-8 o'clock, no purulence no cellulitis, examined with tow bar driver) Skin: No rash Neuro/Psych: alert, normal mood/affect, oriented x 3 - Line/s RUE PICC Lines: No drainage, No erythema - Time Spent With Patient Time Spent with Patient: greater than 35 minutes Time Spent with Patient: Greater than 35 minutes spent on this patients care, greater than 50% of time spent counseling, educating, and coordinating care regarding the above mentioned plan. ICD10 Worksheet Patient Problems: Problems Problem Status Onset Cellulitis of left thigh Acute Anemia Acute Femur fracture, left Acute Hypokalemia Acute Leukocytosis Acute Lumbar transverse process fracture Acute Sacral fracture Acute Skull fracture Acute Tibia/fibula fracture Acute
[2017-06-11] MEDS ORDERED: CARISOPRODOL 350 MG TAB PO PRN (13:21)
[2017-06-11] MEDS ORDERED: HYDROmorphONE/DILAUDID 1 MG/ML SYR IVP PRN (13:49)
--- NOTE | 2017-06-11 14:33 | WOCRNPDOC ---
[facility] Advanced Assessment Note - Skin Integrity Problem, Advanced Assess Left Thigh Dressing Type: Gauze (lightly packed into wound), Kerlix Dressing Description: Saturated Exudate Amount: Moderate Exudate Color: Clear, Reddish/Yellow Exudate Characteristic(s): Serosanguinous Integumentary Issue Intervention: Dressing Applied Aliza Wound Swelling: Mild Wound Bed Color: Red Wound Bed Constitution: Undermining, Fascia Wound Edges: Well Defined Site Odor: None Site Measurement - Head-to-Toe Length X Width X Depth (cm): [id number]. Underminin.5cm from 6-8 o'clock; 5cm from 9-12 o'clock; 2cm from 1-3 o' clock. Skin Integrity Problem Comment: I&D site of seroma on L posterior thigh w/ underlying fascia visible at wound base. Wound opening itself is relatively discrete, but there is significant, circumferential undermining between the subcutaneous tissues and fascia, w/ the greatest depth being 7.5cm from 6-8 o' clock. No induration or erythema noted in aliza-wound tissues, and exudate is watery and serosanguinous w/ no purulence evident. Site prepped and draped, and 1 piece of black Simplace foam was tapered [address] around to allow for some packing into the undermined space. 1 additional piece of black Simplace placed over the wound bed, and vac set to -125mmHg, continuous, low suction w/ no leaks. Patient was premedicated w/ IV Dialudid prior to dressing application , and she tolerated procedure w/ c/o 4/10 pain. money room teller Laura present and assisting. Wound care will follow-up with patient on Thursday 06/14.
--- NOTE | 2017-06-11 16:49 | SOAPPROG ---
SOAP Progress Note Assessment/Plan: Assessment: s/p drainage of infected seroma Minimal drainage Removed Dwayne Kim RN placed wound vac ABX per ID Skin graft looks great. Small piece of epifix over tendon Plan: 06/10/17 20:30 06/11/17 16:48 Objective: Vital Signs Temp Pulse Resp BP Pulse Ox 36.8 C 98 16 106/61 95 06/11/17 16:00 06/11/17 16:00 06/11/17 16:00 06/11/17 16:00 06/11/17 16:00 Microbiology 06/06/17 13:15 Gram Stain - Final Leg - Aspirate Laboratory Results 06/11/17 04:40 06/11/17 04:40 06/10/17 06/11/17 06/12/17 05:59 05:59 05:59 Intake Total 2100 800 Output Total 450 1450 Balance 1650 -650 PT 14.1 SEC (12.0-15.0) 06/10/17 04:50 INR 1.10 (0.83-1.16) 06/10/17 04:50 ICD10 Worksheet Patient Problems: Problems Problem Status Onset Cellulitis of left thigh Acute Anemia Acute Femur fracture, left Acute Hypokalemia Acute Leukocytosis Acute Lumbar transverse process fracture Acute Sacral fracture Acute Skull fracture Acute Tibia/fibula fracture Acute
[2017-06-12] MEDS: LORazepam 0.5 MG TAB PO PRN ×2 (03:28→21:33)
[2017-06-12] MEDS: morphINE SR 15 MG TAB PO SCH ×2 (11:32→20:50)
[2017-06-12] MEDS: GABAPENTIN 300 MG CAP PO SCH ×3 (11:32→20:54)
[2017-06-12] MEDS: SENNOSIDES/DOCUSATE SODIUM TAB PO SCH ×2 (11:33→20:50)
[2017-06-12] MEDS: ENOXAPARIN 40 MG/0.4 ML SYR SC SCH (11:33)
--- NOTE | 2017-06-12 12:32 | PCMIDPN ---
Assessment/Plan: # L thigh MSSA infected seroma s/p evacuation. Wound bed WITHOUT evidence of purulence yesterday. Wound vac present today. Skin grafts appear to be healing well, left lateral ankle wound with epifix in place --decrease dose cefazolin to 1gm IV q8h, plan 2 more days --plan dc Wednesday --educated that healing wounds most important part of preventing future infection Day #/ Cefazolin IV micro 06/06 Surgical Cx: MSSA Subjective: Patient hoping to see a therapist as an outpatient. Denies any pain. Very anxious about discharge Objective: Vital Signs Temp Pulse Resp BP Pulse Ox 36.7 C 89 16 105/71 97 06/12/17 08:00 06/12/17 08:00 06/12/17 08:00 06/12/17 08:00 06/12/17 08:00 Microbiology 06/06/17 13:15 Gram Stain - Final Leg - Aspirate Laboratory Results 06/11/17 04:40 06/11/17 04:40 06/11/17 06/12/17 06/13/17 05:59 05:59 05:59 Intake Total 800 1850 Output Total 1450 1300 Balance -650 550 C-Reactive Protein 255.0 mg/L (<10.0) H 06/05/17 13:08 - Physical Exam General Appearance: alert, no apparent distress, thin Respiratory: No accessory muscle use Extremities: other (Left upper thigh wound VAC in place surrounding tissue now soft. Obvious healing skin grafts, left ankle with 2 x 2 area that has some significant discharge, Epifix placed at this site) Skin: No rash Neuro/Psych: alert, normal mood/affect - Line/s RUE PICC Lines: No drainage, No erythema ICD10 Worksheet Patient Problems: Problems Problem Status Onset Cellulitis of left thigh Acute Anemia Acute Femur fracture, left Acute Hypokalemia Acute Leukocytosis Acute Lumbar transverse process fracture Acute Sacral fracture Acute Skull fracture Acute Tibia/fibula fracture Acute
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
[2017-06-12] MEDS: METHOCARBAMOL 750 MG TAB PO PRN (16:46)
[2017-06-13 05:49] LABS: % IMMATURE GRANULYOCYTES 1.4 % (0.0-1.1); ADD DIFF? NO; ADD MORPH? NO; ADD SCAN? NO; ATYPICAL LYMPHOCYTE FLAG 0 (0-99); FRAGMENT RBC FLAG 0 (0-99); HEMATOCRIT 31.8 % (38.0-47.0); LEFT SHIFT FLG 10 (0-99); LIPEMIA HEMOLYSIS FLAG 80 (0-99); MEAN CELL HEMOGLOBIN 26.6 pg (27.9-34.1); MEAN CELL HEMOGLOBIN CONCENTR. 31.4 g/dL (32.4-36.7); MEAN CELL VOLUME 84.6 fL (81.5-99.8); MEAN PLATELET VOLUME 8.5 fL (8.7-11.7); PLATELET CLUMPS FLAG 0 (0-99); PLATELET COUNT 469 10^3/uL (150-400); RED BLOOD CELL COUNT 3.76 10^6/uL (4.18-5.33); RED CELL DISTRIBUTION WIDTH 13.4 % (11.5-15.2)
[2017-06-13] MEDS: ENOXAPARIN 40 MG/0.4 ML SYR SC SCH (10:08)
[2017-06-13] MEDS: GABAPENTIN 300 MG CAP PO SCH ×3 (10:08→21:27)
[2017-06-13] MEDS: morphINE SR 15 MG TAB PO SCH ×2 (10:08→21:27)
[2017-06-13] MEDS: METHOCARBAMOL 750 MG TAB PO PRN ×2 (10:11→21:41)
[2017-06-13] MEDS: SENNOSIDES/DOCUSATE SODIUM TAB PO SCH (11:18)
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
[2017-06-13] MEDS: LORazepam 0.5 MG TAB PO PRN (21:41)
[2017-06-14] MEDS: ACETAMN/DIPHENHYDRAMINE 500/25MG TAB PO PRN (00:19)
--- NOTE | 2017-06-14 09:41 | SOAPPROG ---
SOAP Progress Note Assessment/Plan: Assessment: s/p drainage of L posterior thigh infected seroma Wound vac dressing removed and replaced today. Serous drainage behind black sponge. Still significant undermining. Placed white sponge into areas of significant undermining. ABX per ID Skin graft looks great. Small piece of epifix over tendon If she discharges, she will f/u on in our office for wound vac change Appreciate hospitalists and ID Objective: Vital Signs Temp Pulse Resp BP Pulse Ox 36.7 C 76 12 98/58 L 96 06/14/17 04:00 06/14/17 04:00 06/14/17 04:00 06/14/17 04:00 06/14/17 04:00 Laboratory Results 06/13/17 05:24 06/11/17 04:40 06/13/17 06/14/17 06/15/17 05:59 05:59 05:59 Intake Total 1150 3350 Output Total 600 2300 Balance 550 1050 PT 14.1 SEC (12.0-15.0) 06/10/17 04:50 INR 1.10 (0.83-1.16) 06/10/17 04:50 ICD10 Worksheet Patient Problems: Problems Problem Status Onset Cellulitis of left thigh Acute Anemia Acute Femur fracture, left Acute Hypokalemia Acute Leukocytosis Acute Lumbar transverse process fracture Acute Sacral fracture Acute Skull fracture Acute Tibia/fibula fracture Acute
[2017-06-14] MEDS: ENOXAPARIN 40 MG/0.4 ML SYR SC SCH (10:13)
[2017-06-14] MEDS: GABAPENTIN 300 MG CAP PO SCH ×3 (10:14→21:51)
[2017-06-14] MEDS: METHOCARBAMOL 750 MG TAB PO PRN ×2 (10:14→20:48)
[2017-06-14] MEDS: morphINE SR 15 MG TAB PO SCH ×2 (10:14→20:48)
--- NOTE | 2017-06-14 14:39 | WOCRNPDOC ---
[facility] Advanced Assessment Note - Skin Integrity Problem, Advanced Assess Left Thigh Dressing Type: Black Vac Foam (taken down by Mine THOMPSON), Wound Vac Dressing Description: Clean/Dry, Intact Exudate Amount: Excessive Exudate Color: Clear, Yellow Integumentary Issue Intervention: Dressing Changed Wound Bed Color: Red Wound Bed Constitution: Granulation Tissue, Smooth Tissue, Undermining (12 oclock: 6.5 cm., to 3 oclock: 5.3 cm., to 6 oclock: 4 cm., 6-12 oclock: 1- 1.5 cm) Wound Edges: Not Attached, Well Defined Site Measurement - Head-to-Toe Length X Width X Depth (cm): 2.5x1.5x1 Skin Integrity Problem Comment: Initial assessment was done with Mine THOMPSON and Zhao BROOKS. Posterior thigh seroma drainage site. Patient extremly anxious about dressing change, although reports there isnt much pain involved. Patient was on phone during dressing change, unclear if patient was videotaping dressing change but per her report to Tony RN she was not. corporate meeting planner did not consent to videotaping/audio recording. Tape and tegaderm removed with adhesive releaser. Flushed wound with ns. Skin prep placed aliza wound to left anterior thigh. Drape was applied aliza wound and under bridge. Bethany Ag+ was placed into wound bed. Two pieces of black simplace foam (medium) were placed into underming and packed to the edges. Vac was restarted at -125 mm Hg continuous suction without leaks. Tony RN was in room and assisted with dressing change.
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
[2017-06-15] MEDS: ACETAMN/DIPHENHYDRAMINE 500/25MG TAB PO PRN (03:10)
[2017-06-15] MEDS: oxyCODONE IR 5 MG TAB PO PRN (09:13)
[2017-06-15] MEDS: GABAPENTIN 300 MG CAP PO SCH ×2 (09:13→15:18)
[2017-06-15] MEDS: morphINE SR 15 MG TAB PO SCH (09:13)
[2017-06-15] MEDS ORDERED: oxyCODONE IR 5 MG TAB PO PRN (10:39)
[2017-06-15 12:05] VITALS: BP 111/81; PULSE 98; RESP 16; TEMP 98.2; O2SAT 99
[2017-06-15] MEDS: ENOXAPARIN 40 MG/0.4 ML SYR SC SCH (12:42)
--- NOTE | 2017-06-15 13:45 | PDIAF ---
- Diagnosis Diagnosis: Cellulitis Code Status: Full Code - Medication Management Discharge Medications: Medications to Continue on Transfer Acetamn/Diphenhydramine 500/25 [Tylenol PM (*)] 2 each PO HS PRN 06/05/17 [Last Taken 06/04/17] Gabapentin [Neurontin 300 MG (*)] 300 mg PO TID 06/05/17 [Last Taken 06/05/17 09 :00] Albuterol 5 mg/ml INH [Proventil] 2.5 mg IH QID PRN #1 btl 06/15/17 [Last Taken Unknown] Methocarbamol 750 mg PO TID #60 tablet 06/15/17 [Last Taken Unknown] morphINE IR [morphINE IR 15 mg (*)] 15 mg PO BID #30 tab 06/15/17 [Last Taken Unknown] Discharge Medications: Refer to the Discharge Home Medication list for PRN reason. - Orders Services needed: Home Care, Registered Nurse Home Care Face to Face: I certify that this patient was under my care and that I had the required [id number] encounter meeting the encounter requirements on the discharge day. My findings support the fact that the patient is homebound as defined in CMS Chapter 7 Medicare Benefits Manual 30.1.1, The condition of the patient is such that there exists a normal inability to leave home and consequently, leaving home would require a considerable and taxing effort. - Follow Up Care Current Providers and Referrals: LUIS PHAM,. [Primary Care Provider] - As per Instructions Clementina Torres MD [Medical Doctor] - (call to make appointment for )
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
== END 2017-06-15 15:30 | disposition home health service (06) | DRG 856 ==
LOC: CED 12:13 → CEDHOLD 13:37 → F2N 15:07 → F1N 06-07 15:35
PROVIDERS: ADMIT Internal Medicine; ATTEND Internal Medicine
PROC: 02HV33Z Insertion of Infusion Device into Superior Vena Cava, Percutaneous Approach (ICD-10-PCS; 2017-06-06)
PROC: 0J9M0ZZ Drainage of Left Upper Leg Subcutaneous Tissue and Fascia, Open Approach (ICD-10-PCS; principal; 2017-06-06 11:00)
PROC: 0JR Subcutaneous Tissue and Fascia, Replacement (ICD-10-PCS; 2017-06-09)
DX: T81.4XXA Infection following a procedure, initial encounter (principal); M96.842 Postprocedural seroma of a musculoskeletal structure following a musculoskeletal system procedure; L02.416 Cutaneous abscess of left lower limb; A41.01 Sepsis due to Methicillin susceptible Staphylococcus aureus; D64.89 Other specified anemias; T80.89XA Other complications following infusion, transfusion and therapeutic injection, initial encounter; L50.9 Urticaria, unspecified; Z86.59 Personal history of other mental and behavioral disorders; Z87.81 Personal history of (healed) traumatic fracture; J45.909 Unspecified asthma, uncomplicated; F17.210 Nicotine dependence, cigarettes, uncomplicated
CPT/HCPCS: 71020-PO; 80048-PO; 82247-PO; 83605-PO; 84703-PO; 85025-PO; 85610-PO; 85730-PO; 93971-PO; 96365; 96374; 97110-GP; 97116-GP; 97140-GP; 97162-GP; 97165-GO; 97530-GO; 97530-GP; 97535-GO; A9585; C1751; J0690; J0692; J1170; J1200; J1650; J2060; J2250; J2405; J2543; J2704; J3010; J3370; J3430; P9016; P9017

== ENCOUNTER 2017-09-23 06:59 | Emergency (ER) | payer MEDICAID ==
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
[2017-09-23 07:05] VITALS: RESP 18; TEMP 98.4
[2017-09-23] MEDS ORDERED: HYDROCODONE/APAP 5/325 TAB PO ONE (07:10)
[2017-09-23] MEDS ORDERED: IBUPROFEN 800 MG TAB PO ONE (07:10)
[2017-09-23 08:46] VITALS: BP 115/66; PULSE 87; O2SAT 97
[2017-09-23] MEDS ORDERED: METHOCARBAMOL 500 MG TAB PO ONE (09:06)
[2017-09-23] MEDS ORDERED: METHOCARBAMOL 750 MG TAB ONE (09:08)
[2017-09-23] MEDS ORDERED: METHOCARBAMOL 750 MG TAB PO ONE (09:08)
== END 2017-09-23 10:04 | disposition home or self-care (01) ==
LOC: EDUNIT#
DX: M25.572 Pain in left ankle and joints of left foot (principal)

== ENCOUNTER 2017-10-22 13:15 | Emergency (ER) | payer MEDICAID ==
[2017-10-22 13:28] VITALS: RESP 18
[2017-10-22] MEDS ORDERED: CEFTRIAXONE IM 350 MG/ML SYRINGE IM ONE (15:01)
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
[2017-10-22 15:10] VITALS: BP 95/52; PULSE 89; TEMP 98.6; O2SAT 99
== END 2017-10-22 15:24 | disposition home or self-care (01) ==
DX: A54.9 Gonococcal infection, unspecified (principal); J45.909 Unspecified asthma, uncomplicated; Z87.891 Personal history of nicotine dependence
CPT/HCPCS: J0696

== ENCOUNTER 2018-12-21 15:46 | Emergency (ER) | payer MEDICAID ==
[2018-12-21] MEDS ORDERED: methylPREDNISolone SOD SUCC 125 MG/2 ML VIAL IVP ONE (15:57)
[2018-12-21] MEDS ORDERED: RANITIDINE 50 MG/2 ML VIAL IVP ONE (15:57)
[2018-12-21] MEDS ORDERED: NS 1,000 ML IV ONE (16:01)
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
[2018-12-21 16:13] LABS: PLATELET COUNT 310 10^3/uL (150-400)
[2018-12-21 17:11] VITALS: BP 121/63
== END 2018-12-21 17:18 | disposition home or self-care (01) ==
LOC: EDUNIT#
DX: T78.2XXA Anaphylactic shock, unspecified, initial encounter (principal); E86.9 Volume depletion, unspecified
CPT/HCPCS: 96374; J1200; J2780; J2930